=== PATIENT | male | born 1930 | race Caucasian/White ===

== ENCOUNTER 2016-09-21 16:00 | Inpatient (IN) | payer MEDICARE, BC ==
[2016-09-21 18:05] LABS: Add Diff/Slide Review? Slide Review Added; Comments Flag Yes; Hematocrit 42 % (42-52); Hemoglobin 13.4 g/dl (14.0-18.0); Mean Corpuscular HGB Conc 32 g/dl (31-36); Mean Corpuscular Hemoglobin 29 pg (27-31); Mean Corpuscular Volume 91 fL (80-94); Mean Platelet Volume 8 um3 (7.4-10.4); Red Blood Count 4.57 10^6/ul (4.0-5.4); Red Cell Distribution Width 15 % (10.5-15); White Blood Count 24.6 10^3/ul (3.5-10.8)
[2016-09-21 18:33] LABS: ALT 10 U/L (7-52); AST 19 U/L (13-39); Albumin 3.6 g/dL (3.2-5.2); Alkaline Phosphatase 62 U/L (34-104); Amylase 16 U/L (29-103); Anion Gap 10 mmol/L (2-11); BUN/Creatinine Ratio 26.7 (8-20); Blood Urea Nitrogen 39 mg/dL (6-24); C Reactive Protein 171.02 mg/L (< 5.00); CO2 Carbon Dioxide 22 mmol/L (22-32); Calcium 9.5 mg/dL (8.6-10.3); Chloride 103 mmol/L (101-111); Creatine Kinase 178 U/L (10-223); EGFR African American 59.3 (>60); EGFR Non-African American 46.1 (>60); Globulin 3.6 g/dL (2-4); Glucose 138 mg/dL (70-100); Lipase < 10 U/L (11.0-82.0); Magnesium 2.2 mg/dL (1.9-2.7); Potassium 4.6 mmol/L (3.5-5.0); Sodium 135 mmol/L (133-145); Total Protein 7.2 g/dL (6.4-8.9)
[2016-09-21 18:35] LABS: Immature Granulocytes 17 % (0-9)
[2016-09-21 18:36] LABS: Neutrophil % 69 % (38-83); RBC Morphology Normal (Normal)
[2016-09-21] MEDS ORDERED: Acetaminophen TAB* 325 MG PO ONE (18:44)
[2016-09-21 19:09] LABS: Urine Bacteria Absent (Absent); Urine Bilirubin Negative (Negative); Urine Glucose Negative (Negative); Urine Nitrite Negative (Negative)
--- NOTE | 2016-09-21 19:27 | RAD ---
Indication: Shortness of breath, pneumonia. Single frontal view of the chest performed at 1916 hours was reviewed. Comparison is made with previous exam dated June 06, 2014. No mediastinal shift is noted. Heart is of normal size and configuration. Lung loyd appear clear. IMPRESSION: NO ACTIVE CARDIOPULMONARY DISEASE IS NOTED.
[2016-09-21] MEDS: NS 0.9% 1000 ML* 3,000 ML IV ONE ×2 (19:39→22:03)
[2016-09-21] MEDS ORDERED: Iodixanol* (CONTRAST) 320 MG/ML 100 ML SDV IV ONE (20:54)
--- NOTE | 2016-09-21 22:00 | RAD ---
Indication: Abdominal pain, colitis. Contrast: Administered 99.0 ml of VISAPAQUE 320 mgi/ml CT of the abdomen and pelvis was performed after oral and IV contrast administration. Coronal and sagittal reconstructed images were obtained. Lung bases demonstrate no pleural fluid. Bilateral pleural effusion is noted. Heart demonstrates no pericardial effusion. Liver is normal in size. No focal lesions or intrahepatic ductal dilatation is noted. The spleen is normal in size. The pancreas is atrophic. No pancreatic duct dilatation is noted. Common duct is not dilated. Gallbladder demonstrates no calcified gallstones, pericholecystic fluid or wall thickening. No adrenal masses are noted. The kidneys demonstrate symmetric nephrograms. Atherosclerotic aorta is noted. There is submucosal edema in the transverse colon and descending colon. Findings are suspicious for colitis. This extends to the sigmoid colon. The trace amount of free fluid is noted. The appendix is visualized and is normal. There is contrast in the right colon noted. No pelvic adenopathy is noted. The urinary bladder is otherwise unremarkable. There is suggestion of a filling defect in the right common femoral vein. This extends into the right femoral vein. The possibility of a deep venous thrombosis in the right common femoral vein and femoral vein should be considered. The bony structures are grossly unremarkable aside from degenerative disc disease in the lumbar spine. IMPRESSION: SUBMUCOSAL EDEMA IN THE TRANSVERSE COLON, DESCENDING COLON EXTENDING TO THE SIGMOID COLON. FINDINGS ARE CONSISTENT WITH COLITIS. IN ADDITION THERE APPEARS TO BE FILLING DEFECT IN THE RIGHT COMMON FEMORAL VEIN EXTENDING TO THE RIGHT FEMORAL VEIN WHICH IS SUSPICIOUS FOR DEEP VENOUS THROMBOSIS OF THE RIGHT LOWER EXTREMITY.
[2016-09-21] MEDS ORDERED: Acetaminophen TAB* 325 MG PO PRN (22:13)
[2016-09-21] MEDS ORDERED: Albuterol 2.5 MG/3 ML NEB.SOL* (0.083%) INH PRN (22:13)
[2016-09-21] MEDS ORDERED: CMCS: Melatonin (NF) 3 MG TAB PO PRN (22:13)
[2016-09-21] MEDS ORDERED: oxyCODONE TAB* 5 MG TAB PO PRN (22:14)
[2016-09-21] MEDS ORDERED: Ondansetron INJ* 2 MG/ML VIAL IV PRN (22:14)
--- NOTE | 2016-09-21 22:21 | HP ---
H&P (Free Text) History and Physical: PCP: Jessica Mondragon NP Date/Time of Evaluation: 09/21/2016 2200 CC: abdominal pain HPI: Mr Knapp is an 85YO male HX advanced dementia living at home with his developed cramping abdominal pain yesterday continuing into today with the onset of diarrhea which became maroon colored prompting this evaluation. There has been no F/C, sweats, N/V, SOB, chest pain, or other issues. He has chronic swelling of the RLE and has a new oxygen requirement of 5L NC at rest. CT abd/ pel W revealed descending colitis and a filling defect in the proximal R common femoral into the R femoral vein which has been confirmed by US. As he cannot have further dye load to assess for PE, but is not a good candidate for anticoagulation 2nd rectal bleeding, Nita Hussein MD surgery was consulted and will come evaluate him for IVC filter placement tonight. PMedHx TIA/CVA HTN hypothyroidism GERD vitamin B12 deficiency Ambulatory Orders Omeprazole CAP* [Prilosec CAP*] 20 mg PO DAILY 06/06/14 Aspirin Low Dose CHEW TAB* [Aspirin Low Dose TAB*] 81 mg PO DAILY 09/21/16 Docusate Sodium [Stool Softener] 100 mg PO DAILY 09/21/16 Levothyroxine TAB* [Synthroid TAB*] 88 mcg PO DAILY 09/21/16 Lisinopril TAB* [Prinivil TAB*] 5 mg PO DAILY 09/21/16 [place]-3 Fatty Acids (Nf) [Fish Oil (NF)] 1,000 mg PO DAILY 09/21/16 Allergies No Known Allergies Allergy (Verified 04/23/12 10:21) SocHx: former light smoker, occasional alcohol, no recreational drugs; lives with his ; former real estate agent; DNR/I code status FamHx: positive for HTN ROS: as above, otherwise reviewed and all were negative Constitutional: NAD, normally developed, well-nourished elderly white male vitals: Vital Signs Temp 36.9 C 09/21/16 19:25 Pulse 99 09/21/16 23:00 Resp 23 09/21/16 23:00 BP 125/72 09/21/16 23:00 Pulse Ox 94 09/21/16 23:00 Intake & Output 09/20/16 09/21/16 09/21/16 23:59 11:59 23:59 Intake Total 1100 Balance 1100 Weight 79.379 kg Intake: IV Fluids 1100 HEENM: atraumatic; hearing: clinically intact; oropharynx: clear, mucosa tacky Neck: soft tissue: non-tender; thyroid: normal Pulmonary: clear to auscultation bilaterally, good aeration, no accessory muscle use CV: RR/RR, normal S1S2, no carotid bruit, no jugular venous distention, 2+ B DP/ PT, 2+ RLE/1+ LLE edema Abdominal: soft, non-distended, non-tender, no rebound/guarding/rigidity, normoactive bowel sounds, no hepatosplenomegaly or masses, no costovertebral angle tenderness Musculoskeletal: general: grossly intact without obvious malformation or contracture Integumental: normal appearance and texture of exposed skin Psychiatric orientation: AA & disoriented affect: fidgety mood: resistive, but not combative eye contact: poor content: unreliable memory: markedly impaired insight: poor to absent Testing: Lab Results 09/21/16 09/21/16 09/21/16 Range/Units 17:47 17:47 17:47 WBC 24.6 H (3.5-10.8) 10^3/ul RBC 4.57 (4.0-5.4) 10^6/ul Hgb 13.4 L (14.0-18.0) g/dl Hct 42 (42-52) % MCV 91 (80-94) fL MCH 29 (27-31) pg MCHC 32 (31-36) g/dl RDW 15 (10.5-15) % Plt Count 210 (150-450) 10^3/ul MPV 8 (7.4-10.4) um3 Immature Gran % (Auto) 17 H (0-9) % Neut % (Auto) 85.6 H (38-83) % Lymph % (Auto) 6.1 L (25-47) % [place] % (Auto) 7.6 (1-9) % Eos % (Auto) 0.1 (0-6) % Baso % (Auto) 0.6 (0-2) % Absolute Neuts (auto) 21.0 H (1.5-7.7) 10^3/ul Absolute Lymphs (auto) 1.5 (1.0-4.8) 10^3/ul Absolute Monos (auto) 1.9 H (0-0.8) 10^3/ul Absolute Eos (auto) 0 (0-0.6) 10^3/ul Absolute Basos (auto) 0.1 (0-0.2) 10^3/ul Absolute Nucleated RBC 0.01 10^3/ul Neutrophils % 69 (38-83) % Band Neutrophils % 14 H (0-8) % Lymphocytes % 12 L (25-47) % Monocytes % 5 (0-13) % Nucleated RBC % 0 Normal RBC Morphology Normal (Normal) Sodium 135 (133-145) mmol/L Potassium 4.6 (3.5-5.0) mmol/L Chloride 103 (101-111) mmol/L Carbon Dioxide 22 (22-32) mmol/L Anion Gap 10 (2-11) mmol/L BUN 39 H (6-24) mg/dL Creatinine 1.46 H (0.67-1.17) mg/dL Est GFR ( Amer) 59.3 (>60) Est GFR (Non-Af Amer) 46.1 (>60) BUN/Creatinine Ratio 26.7 H (8-20) Glucose 138 H (70-100) mg/dL Lactic Acid 1.3 (0.5-2.0) mmol/L Calcium 9.5 (8.6-10.3) mg/dL Magnesium 2.2 (1.9-2.7) mg/dL Total Bilirubin 0.80 (0.2-1.0) mg/dL AST 19 (13-39) U/L ALT 10 (7-52) U/L Alkaline Phosphatase 62 (34-104) U/L Total Creatine Kinase 178 (10-223) U/L C-Reactive Protein 171.02 H (< 5.00) mg/L B-Natriuretic Peptide ( - 100) pg/mL Total Protein 7.2 (6.4-8.9) g/dL Albumin 3.6 (3.2-5.2) g/dL Globulin 3.6 (2-4) g/dL Albumin/Globulin Ratio 1.0 (1-3) Amylase 16 L (29-103) U/L Lipase < 10 L (11.0-82.0) U/L Urine Color Urine Appearance Urine pH (5-9) Ur Specific David (1.010-1.030) Urine Protein (Negative) Urine Ketones (Negative) Urine Blood (Negative) Urine Nitrate (Negative) Urine Bilirubin (Negative) Urine Urobilinogen (Negative) Ur Leukocyte Esterase (Negative) Urine WBC (Auto) (Absent) Urine RBC (Auto) (Absent) Urine Bacteria (Absent) Cellular Casts (Absent) Urine Glucose (Negative) Blood Type Antibody Screen 09/21/16 09/21/16 09/21/16 Range/Units 17:47 17:47 18:49 WBC (3.5-10.8) 10^3/ul RBC (4.0-5.4) 10^6/ul Hgb (14.0-18.0) g/dl Hct (42-52) % MCV (80-94) fL MCH (27-31) pg MCHC (31-36) g/dl RDW (10.5-15) % Plt Count (150-450) 10^3/ul MPV (7.4-10.4) um3 Immature Gran % (Auto) (0-9) % Neut % (Auto) (38-83) % Lymph % (Auto) (25-47) % [place] % (Auto) (1-9) % Eos % (Auto) (0-6) % Baso % (Auto) (0-2) % Absolute Neuts (auto) (1.5-7.7) 10^3/ul Absolute Lymphs (auto) (1.0-4.8) 10^3/ul Absolute Monos (auto) (0-0.8) 10^3/ul Absolute Eos (auto) (0-0.6) 10^3/ul Absolute Basos (auto) (0-0.2) 10^3/ul Absolute Nucleated RBC 10^3/ul Neutrophils % (38-83) % Band Neutrophils % (0-8) % Lymphocytes % (25-47) % Monocytes % (0-13) % Nucleated RBC % Normal RBC Morphology (Normal) Sodium (133-145) mmol/L Potassium (3.5-5.0) mmol/L Chloride (101-111) mmol/L Carbon Dioxide (22-32) mmol/L Anion Gap (2-11) mmol/L BUN (6-24) mg/dL Creatinine (0.67-1.17) mg/dL Est GFR ( Amer) (>60) Est GFR (Non-Af Amer) (>60) BUN/Creatinine Ratio (8-20) Glucose (70-100) mg/dL Lactic Acid (0.5-2.0) mmol/L Calcium (8.6-10.3) mg/dL Magnesium (1.9-2.7) mg/dL Total Bilirubin (0.2-1.0) mg/dL AST (13-39) U/L ALT (7-52) U/L Alkaline Phosphatase (34-104) U/L Total Creatine Kinase (10-223) U/L C-Reactive Protein (< 5.00) mg/L B-Natriuretic Peptide 316 H ( - 100) pg/mL Total Protein (6.4-8.9) g/dL Albumin (3.2-5.2) g/dL Globulin (2-4) g/dL Albumin/Globulin Ratio (1-3) Amylase (29-103) U/L Lipase (11.0-82.0) U/L Urine Color Yellow Urine Appearance Clear Urine pH 5.0 (5-9) Ur Specific David 1.023 (1.010-1.030) Urine Protein 1+(30 mg/dl) H (Negative) Urine Ketones Negative (Negative) Urine Blood 1+ H (Negative) Urine Nitrate Negative (Negative) Urine Bilirubin Negative (Negative) Urine Urobilinogen Negative (Negative) Ur Leukocyte Esterase Negative (Negative) Urine WBC (Auto) Trace(0-5/hpf) (Absent) Urine RBC (Auto) Trace(0-2/hpf) (Absent) Urine Bacteria Absent (Absent) Cellular Casts Present H (Absent) Urine Glucose Negative (Negative) Blood Type A Positive Antibody Screen Negative 09/21/16 Range/Units 19:27 WBC (3.5-10.8) 10^3/ul RBC (4.0-5.4) 10^6/ul Hgb (14.0-18.0) g/dl Hct (42-52) % MCV (80-94) fL MCH (27-31) pg MCHC (31-36) g/dl RDW (10.5-15) % Plt Count (150-450) 10^3/ul MPV (7.4-10.4) um3 Immature Gran % (Auto) (0-9) % Neut % (Auto) (38-83) % Lymph % (Auto) (25-47) % [place] % (Auto) (1-9) % Eos % (Auto) (0-6) % Baso % (Auto) (0-2) % Absolute Neuts (auto) (1.5-7.7) 10^3/ul Absolute Lymphs (auto) (1.0-4.8) 10^3/ul Absolute Monos (auto) (0-0.8) 10^3/ul Absolute Eos (auto) (0-0.6) 10^3/ul Absolute Basos (auto) (0-0.2) 10^3/ul Absolute Nucleated RBC 10^3/ul Neutrophils % (38-83) % Band Neutrophils % (0-8) % Lymphocytes % (25-47) % Monocytes % (0-13) % Nucleated RBC % Normal RBC Morphology (Normal) Sodium (133-145) mmol/L Potassium (3.5-5.0) mmol/L Chloride (101-111) mmol/L Carbon Dioxide (22-32) mmol/L Anion Gap (2-11) mmol/L BUN (6-24) mg/dL Creatinine (0.67-1.17) mg/dL Est GFR ( Amer) (>60) Est GFR (Non-Af Amer) (>60) BUN/Creatinine Ratio (8-20) Glucose (70-100) mg/dL Lactic Acid 1.4 (0.5-2.0) mmol/L Calcium (8.6-10.3) mg/dL Magnesium (1.9-2.7) mg/dL Total Bilirubin (0.2-1.0) mg/dL AST (13-39) U/L ALT (7-52) U/L Alkaline Phosphatase (34-104) U/L Total Creatine Kinase (10-223) U/L C-Reactive Protein (< 5.00) mg/L B-Natriuretic Peptide ( - 100) pg/mL Total Protein (6.4-8.9) g/dL Albumin (3.2-5.2) g/dL Globulin (2-4) g/dL Albumin/Globulin Ratio (1-3) Amylase (29-103) U/L Lipase (11.0-82.0) U/L Urine Color Urine Appearance Urine pH (5-9) Ur Specific [place] (1.010-1.030) Urine Protein (Negative) Urine Ketones (Negative) Urine Blood (Negative) Urine Nitrate (Negative) Urine Bilirubin (Negative) Urine Urobilinogen (Negative) Ur Leukocyte Esterase (Negative) Urine WBC (Auto) (Absent) Urine RBC (Auto) (Absent) Urine Bacteria (Absent) Cellular Casts (Absent) Urine Glucose (Negative) Blood Type Antibody Screen ECG, personally reviewed: NSR rate 93, no ischemia CXR, personally reviewed: IMPRESSION: NO ACTIVE CARDIOPULMONARY DISEASE IS NOTED. CT abd/pel W, personally reviewed: IMPRESSION: SUBMUCOSAL EDEMA IN THE TRANSVERSE COLON, DESCENDING COLON EXTENDING TO THE SIGMOID COLON. FINDINGS ARE CONSISTENT WITH COLITIS. IN ADDITION THERE APPEARS TO BE FILLING DEFECT IN THE RIGHT COMMON FEMORAL VEIN EXTENDING TO THE RIGHT FEMORAL VEIN WHICH IS SUSPICIOUS FOR DEEP VENOUS THROMBOSIS OF THE RIGHT LOWER EXTREMITY. US RLE: ordered, pending Impression: 85M presenting with descending colitis, infectious vs ischemic and proximal R common femoral DVT associated with new oxygen requirement giving significant concern for acute PE DIAGNOSIS & PLAN Primary colitis w/ lower GI bleeding : IV piperacillin/tazobactam : IVFs : blood & stool CXs : pain control : consider GI consult in AM pending overnight course : supportive care RAFA : IVFs : trend renal FX DVT w/ suspected acute DVT : ICU monitoring : supplemental oxygen : not a good candidate for anti-coagulation due to rectal bleeding : Nita Hussein MD surgery consulted, will come evaluate for possible IVC filter placement as he is Secondary TIA : hold aspirin in setting of GI bleeding HTN : review meds once reconciled hypothyroidism : review meds once reconciled GERD : PO omeprazole vitamin B12 deficiency : review meds once reconciled Admission Rational: inpatient for colitis requiring IV ABX & IVFs not anticipated to improve adequately w/i 48H to allow for discharge DVTp: heparin SQ & SCDs Code Status: full HCP:
--- NOTE | 2016-09-21 22:54 | ED ---
Beck Urbina Thomas, scribed for Eladio Bourne MD on 09/21/16 at 1915 . Abdominal Pain/Male - HPI Summary HPI Summary: Pt is an 85 y/o with advanced dementia presenting to the the ED with bloody diarrhea and abdominal pain. Per his son, the pt had bloody diarrhea yestereday and dark blood in his diaper at 1500 today. Currently, pain is resolved, ranked 0/10. Additionally c/o occasional urinary incontinence. Denies vomiting, SOB. Since yesterday he has not eaten and has only had a few sips of Gatorade to drink. PMHx: advanced dementia, HTN, TIA. Denies a hx of DM, diverticulitis, and CHF. Is not on a blood thinner. Takes medication for his thyroid. FHx of Alzheimer's disease. Level 5 caveat due to dementia. - History of Current Complaint Chief Complaint: EDAbdPain Stated Complaint: ABD PAIN/DIARRHEA/BLOOD IN STOOL Time Seen by Provider: 09/21/16 18:39 Hx Obtained From: Patient, Family/Credit Resolution Representative Hx From Patient Unobtainable Due To: Dementia Onset/Duration: Lasting Hours - onset yesterday afternoon Severity Currently: None Pain Intensity: 0 Pain Scale Used: 0-10 Numeric Associated Signs And Symptoms: Positive: Other - POS: occasoinal urinary incontinence; NEG: SOB. Negative: Vomiting - Allergies/Home Medications Allergies/Adverse Reactions: Allergies Allergy/AdvReac Type Severity Reaction Status Date / Time No Known Allergies Allergy Verified 04/23/12 10:21 Home Medications: Home Medications Aspirin Low Dose CHEW TAB* [Aspirin Low Dose TAB*] 81 mg PO DAILY 09/21/16 [ History Confirmed 09/21/16] Docusate Sodium [Stool Softener] 100 mg PO DAILY 09/21/16 [History Confirmed ] Levothyroxine TAB* [Synthroid TAB*] 88 mcg PO DAILY 09/21/16 [History Confirmed 09/21/16] Lisinopril TAB* [Prinivil TAB*] 5 mg PO DAILY 09/21/16 [History Confirmed ] [place]-3 Fatty Acids (Nf) [Fish Oil (NF)] 1,000 mg PO DAILY 09/21/16 [History Confirmed 09/21/16] PMH/Surg Hx/FS Hx/Imm Hx Previously Healthy: No Endocrine/Hematology History: Reports: Hx Thyroid Disease Cardiovascular History: Reports: Hx Hypertension Denies: Hx Pacemaker/ICD GI History: Reports: Hx Hiatal Hernia Sensory History: Reports: Hx Contacts or Glasses - reading only Denies: Hx Hearing Aid - hard of hearing,asks to repeat Opthamlomology History: Reports: Hx Contacts or Glasses - reading only Neurological History: Reports: Hx Dementia Psychiatric History: Denies: Hx Panic Disorder - Surgical History Surgery Procedure, Year, and Place: broken bones,nothing that comes to mind. Infectious Disease History: No Infectious Disease History: Reports: Hx Shingles Denies: Traveled Outside the [place] in Last 30 Days - Family History Known Family History: Positive: Other - POS: Alzheimer's disease - Social History Alcohol Use: Weekly Substance Use Type: Reports: None Smoking Status (MU): Former Smoker Review of Systems - ROS Summary Review of Systems Summary: Level 5 caveat due to dementia. ROS limited because patient will not follow commands. Negative: Shortness Of Breath Gastrointestinal: Other - POS: bloody diarrhea, dark blood in diaper Positive: Abdominal Pain. Negative: Vomiting Genitourinary: Other - POS: occasional urinary incontinence All Other Systems Reviewed And Are Negative: No Physical Exam - Summary Physical Exam Summary: History is obtained from son. Level 5 caveat to due to dementia. The patient is mildly ill. The skin is warm and dry. Patient is pale-looking. Decreased skin turgor. HEENT: The head is normocephalic and atraumatic. The pupils are equal and reactive. The conjunctivae are clear and without drainage. Nares are patent and without drainage. Mouth reveals dry mucous membranes and the throat is without erythema and exudate. The external ears are intact. The ear canals are patent and without drainage. The tympanic membranes are intact. Neck is supple with full range of motion and non-tender. There are no carotid bruits. There is no neck vein distension. Respiratory: Chest is non-tender. Lungs are clear to auscultation and breath sounds are symmetrical and equal. Cardiovascular: Hear is regular rate and rhythm. There is no murmur or rub auscultated. Pitting pedal edema. Pulses are symmetrical and equal. Pulses are 2+. Capillary refill Abdomen: Tender abdomen. Hyperactive bowel sounds. Belly is distended. Gaurav blood in rectal exam. Guarding is present. Tenderness to LUQ, LLQ, and L middle quadrant. Musculoskeletal: There is no back pain noted. Extremities are non-tender with full range of motion. There is good capillary refill. There is no peripheral edema or calf tenderness elicited. Neurological: Unable to perform neurological exam because patient will not follow commands. Probably demented. Psychiatric: The patient has an appropriate affect and does not exhibit any anxiety or depression. Triage Information Reviewed: Yes Vital Signs On Initial Exam: Initial Vitals Temp Pulse Resp BP Pulse Ox 98.3 F 81 20 109/46 99 09/21/16 16:04 09/21/16 16:04 09/21/16 16:04 09/21/16 16:04 09/21/16 16:04 Vital Signs Reviewed: Yes Diagnostics - Vital Signs Vital Signs Temp Pulse Resp BP Pulse Ox 09/21/16 17:53 100.2 F 82 22 141/108 87 09/21/16 16:04 98.3 F 81 20 109/46 99 - Laboratory Lab Results: Lab Results 09/21/16 09/21/16 09/21/16 Range/Units 17:47 17:47 17:47 WBC 24.6 H (3.5-10.8) 10^3/ul RBC 4.57 (4.0-5.4) 10^6/ul Hgb 13.4 L (14.0-18.0) g/dl Hct 42 (42-52) % MCV 91 (80-94) fL MCH 29 (27-31) pg MCHC 32 (31-36) g/dl RDW 15 (10.5-15) % Plt Count 210 (150-450) 10^3/ul MPV 8 (7.4-10.4) um3 Immature Gran % (Auto) 17 H (0-9) % Neut % (Auto) 85.6 H (38-83) % Lymph % (Auto) 6.1 L (25-47) % [place] % (Auto) 7.6 (1-9) % Eos % (Auto) 0.1 (0-6) % Baso % (Auto) 0.6 (0-2) % Absolute Neuts (auto) 21.0 H (1.5-7.7) 10^3/ul Absolute Lymphs (auto) 1.5 (1.0-4.8) 10^3/ul Absolute Monos (auto) 1.9 H (0-0.8) 10^3/ul Absolute Eos (auto) 0 (0-0.6) 10^3/ul Absolute Basos (auto) 0.1 (0-0.2) 10^3/ul Absolute Nucleated RBC 0.01 10^3/ul Neutrophils % 69 (38-83) % Band Neutrophils % 14 H (0-8) % Lymphocytes % 12 L (25-47) % Monocytes % 5 (0-13) % Nucleated RBC % 0 Normal RBC Morphology Normal (Normal) Sodium 135 (133-145) mmol/L Potassium 4.6 (3.5-5.0) mmol/L Chloride 103 (101-111) mmol/L Carbon Dioxide 22 (22-32) mmol/L Anion Gap 10 (2-11) mmol/L BUN 39 H (6-24) mg/dL Creatinine 1.46 H (0.67-1.17) mg/dL Est GFR ( Amer) 59.3 (>60) Est GFR (Non-Af Amer) 46.1 (>60) BUN/Creatinine Ratio 26.7 H (8-20) Glucose 138 H (70-100) mg/dL Lactic Acid 1.3 (0.5-2.0) mmol/L Calcium 9.5 (8.6-10.3) mg/dL Magnesium 2.2 (1.9-2.7) mg/dL Total Bilirubin 0.80 (0.2-1.0) mg/dL AST 19 (13-39) U/L ALT 10 (7-52) U/L Alkaline Phosphatase 62 (34-104) U/L Total Creatine Kinase 178 (10-223) U/L C-Reactive Protein 171.02 H (< 5.00) mg/L B-Natriuretic Peptide ( - 100) pg/mL Total Protein 7.2 (6.4-8.9) g/dL Albumin 3.6 (3.2-5.2) g/dL Globulin 3.6 (2-4) g/dL Albumin/Globulin Ratio 1.0 (1-3) Amylase 16 L (29-103) U/L Lipase < 10 L (11.0-82.0) U/L Blood Type Antibody Screen 09/21/16 09/21/16 Range/Units 17:47 17:47 WBC (3.5-10.8) 10^3/ul RBC (4.0-5.4) 10^6/ul Hgb (14.0-18.0) g/dl Hct (42-52) % MCV (80-94) fL MCH (27-31) pg MCHC (31-36) g/dl RDW (10.5-15) % Plt Count (150-450) 10^3/ul MPV (7.4-10.4) um3 Immature Gran % (Auto) (0-9) % Neut % (Auto) (38-83) % Lymph % (Auto) (25-47) % [place] % (Auto) (1-9) % Eos % (Auto) (0-6) % Baso % (Auto) (0-2) % Absolute Neuts (auto) (1.5-7.7) 10^3/ul Absolute Lymphs (auto) (1.0-4.8) 10^3/ul Absolute Monos (auto) (0-0.8) 10^3/ul Absolute Eos (auto) (0-0.6) 10^3/ul Absolute Basos (auto) (0-0.2) 10^3/ul Absolute Nucleated RBC 10^3/ul Neutrophils % (38-83) % Band Neutrophils % (0-8) % Lymphocytes % (25-47) % Monocytes % (0-13) % Nucleated RBC % Normal RBC Morphology (Normal) Sodium (133-145) mmol/L Potassium (3.5-5.0) mmol/L Chloride (101-111) mmol/L Carbon Dioxide (22-32) mmol/L Anion Gap (2-11) mmol/L BUN (6-24) mg/dL Creatinine (0.67-1.17) mg/dL Est GFR ( Amer) (>60) Est GFR (Non-Af Amer) (>60) BUN/Creatinine Ratio (8-20) Glucose (70-100) mg/dL Lactic Acid (0.5-2.0) mmol/L Calcium (8.6-10.3) mg/dL Magnesium (1.9-2.7) mg/dL Total Bilirubin (0.2-1.0) mg/dL AST (13-39) U/L ALT (7-52) U/L Alkaline Phosphatase (34-104) U/L Total Creatine Kinase (10-223) U/L C-Reactive Protein (< 5.00) mg/L B-Natriuretic Peptide 316 H ( - 100) pg/mL Total Protein (6.4-8.9) g/dL Albumin (3.2-5.2) g/dL Globulin (2-4) g/dL Albumin/Globulin Ratio (1-3) Amylase (29-103) U/L Lipase (11.0-82.0) U/L Blood Type A Positive Antibody Screen Negative Result Diagrams: 09/21/16 17:47 09/21/16 17:47 Lab Statement: Any lab studies that have been ordered have been reviewed, and results considered in the medical decision making process. - Radiology CXR Xray Interpretation: No Acute Changes - NO ACTIVE CARDIOPULMONARY DISEASE NOTED. Radiology Interpretation Completed By: Radiologist - CT Abd/Pel CT CT Interpretation: Positive (See Comments) - SUBMUCOSAL EDEMA IN THE TRANSVERSE COLON, DESCENDING COLON EXTENDING TO THE SIGMOID COLON. FINDINGS ARE CONSISTENT WITH COLITIS. IN ADDITION THERE APPEARS TO BE FILLING DEFECT IN THE RIGHT COMMON FEMORAL VEIN EXTENDING TO THE RIGHT FEMORAL VEIN WHICH IS SUSPICIOUS FOR DEEP VENOUS THROMBOSIS OF THE RIGHT LOWER EXTREMITY. CT Interpretation Completed By: Radiologist - EKG 1943 Cardiac Rate: NL - 92 bpm EKG Rhythm: Sinus Rhythm ST Segment: Non-Specific - Non-specific ST changes EKG Interpretation: Old inferior wall MN, poor R wave progression Abdominal Pain Fem Course/Dx - Course Assessment/Plan: Pt is an 85 y/o with advanced dementia presenting to the the ED with bloody diarrhea and abdominal pain. Per his son, the pt had bloody diarrhea yestereday and dark blood in his diaper at 1500 today. Currently, pain is resolved, ranked 0/10. Additionally c/o occasional urinary incontinence. Denies vomiting, SOB. Since yesterday he has not eaten and has only had a few sips of Gatorade to drink. PMHx: advanced dementia, HTN, TIA. Denies a hx of DM , diverticulitis, and CHF. Is not on a blood thinner. Takes medication for his thyroid. FHx of Alzheimer's disease. Level 5 caveat due to dementia. Abd/Pel CT reveals: "SUBMUCOSAL EDEMA IN THE TRANSVERSE COLON, DESCENDING COLON EXTENDING TO THE SIGMOID COLON. FINDINGS ARE CONSISTENT WITH COLITIS. IN ADDITION THERE APPEARS TO BE FILLING DEFECT IN THE RIGHT COMMON FEMORAL VEIN EXTENDING TO THE RIGHT FEMORAL VEIN WHICH IS SUSPICIOUS FOR DEEP VENOUS THROMBOSIS OF THE RIGHT LOWER EXTREMITY." CXR reveals no acute findings. EKG reveals no acute findings. Discussed care of patient with Dr. Tolbert who accepts pt for admission. He will be admitted with Dx of colitis and DVT of the right common femoral vein. - Diagnoses Differential Diagnosis/HQI/PQRI: Bowel Obstruction, Diverticulitis, Ischemic Bowel, Pancreatitis, Other Provider Diagnoses: Colitis, right common femoral vein DVT, Acute GI hemorrhage - Provider Notifications Discussed Care Of Patient With: Demar Tolbert Time Discussed With Above Provider: 21:30 Instructed by Provider To: Other - Wants to see the results of the CT before making a decision concerning the patient. Discussed care of patient with Dr. Tolbert at 2223 who accepts pt for admission. - Critical Care Time Critical Care Time: 30-74 min - 30 minutes Discharge - Discharge Plan Condition: Stable Disposition: ADMITTED TO [facility] documentation as recorded by the Beck perez Thomas accurately reflects the service I personally performed and the decisions made by , Eladio Bourne MD.
[2016-09-22] MEDS ORDERED: Lidocaine 1% INJ* 10 MG/ML 30 ML SDV ONE (00:08)
[2016-09-22] MEDS ORDERED: Heparin 2 UNITS/ML IVPREMIX* 1,000 ML IV ONE (00:08)
[2016-09-22] MEDS ORDERED: ceFAZolin 2 GM PREMIX(*) 2 GM/50 ML BAG IVPB ONE (00:32)
[2016-09-22] MEDS ORDERED: Remifentanil* 2 MG VIAL ONE (00:53)
[2016-09-22] MEDS ORDERED: Lidocaine 2% PF * 5 ML VIAL ONE (01:03)
[2016-09-22] MEDS ORDERED: Propofol* 10 MG/ML 20 ML BTL IV PUSH ONE (01:03)
[2016-09-22] MEDS: NS 0.9% 1000 ML* 1,000 ML IV SCH ×3 (03:02→16:01)
--- NOTE | 2016-09-22 04:13 | PN ---
Progress Note - Progress Note Date of Service: 09/22/16 Note: After case discussed with Nita Hussein MD surgery, it was best felt to take Mr Knapp to the OR for IVC filter placement tonight to avoid the risks of anticoagulation for his DVT/suspected PE given his rectal bleeding. The procedure was reported as going very well and alleviates the immediate risk of further embolization. As such, he will be monitored on 4 S telemetry rather than ICU.
[2016-09-22] MEDS ORDERED: Omeprazole CAP* 20 MG PO SCH ×2 (06:00→09:00)
[2016-09-22] MEDS ORDERED: Heparin VIAL(*) 5000 UNITS/ML VIAL (FIVE THOUSAND) SUBCUT SCH (06:00)
[2016-09-22] MEDS ORDERED: Levothyroxine TAB* 88 MCG TAB PO SCH (06:00)
--- NOTE | 2016-09-22 07:26 | RAD ---
HISTORY: Lower extremity pain and swelling TECHNIQUE: Multiple transverse and longitudinal ultrasound images were obtained of the veins of the right lower extremity using grayscale, color Doppler, and spectral Doppler imaging with and without compression and with augmentation. FINDINGS: Examination is limited by patient's inability to remain still and cooperate with the examination. VEINS: Beginning at the right common femoral vein and extending to the proximal femoral vein, there is echogenic intraluminal filling defect preventing compression of the vein with a small amount of color flow around the margins. From the mid femoral vein to the popliteal vein there is normal compressibility, augmentation and color flow signal. The visualized portions of the femoral profundus vein and proximal great saphenous vein exhibit normal compressibility, augmentation and phasicity. Reliable visualization of the calf veins is prevented by subcutaneous edema overlying the calf. SOFT TISSUES: Grossly normal. No large popliteal fossa cyst was identified. IMPRESSION: Sonographic findings are compatible with partially occlusive DVT from the right common femoral vein to the proximal portion of the femoral vein.
--- NOTE | 2016-09-22 07:42 | RAD ---
INDICATION: IVC filter insertion. TECHNIQUE: 16.3 seconds of intermitted fluoroscopic guidance was provided. 3 spot films and a cine loop were obtained. FINDINGS: The films demonstrate placement of an inferior vena caval filter at the L2-L3 level. IMPRESSION: INTRAOPERATIVE CONTROL FILMS. CPT II Codes: 6045F
[2016-09-22] MEDS ORDERED: Lisinopril TAB* 5 MG PO SCH (09:00)
[2016-09-22 09:02] LABS: Hematocrit 36 % (42-52); Hemoglobin 11.6 g/dl (14.0-18.0); Mean Corpuscular HGB Conc 32 g/dl (31-36); Mean Corpuscular Hemoglobin 29 pg (27-31); Mean Corpuscular Volume 91 fL (80-94); Mean Platelet Volume 8 um3 (7.4-10.4); Red Blood Count 3.96 10^6/ul (4.0-5.4); Red Cell Distribution Width 15 % (10.5-15)
[2016-09-22 09:18] LABS: Calcium 8.4 mg/dL (8.6-10.3); EGFR African American 72.3 (>60); EGFR Non-African American 56.2 (>60); Potassium 4.1 mmol/L (3.5-5.0)
[2016-09-22] MEDS: Pantoprazole IV* 40 MG IV SCH (10:31)
[2016-09-22] MEDS: Levothyroxine INJ* 100 MCG/5 ML VIAL IV SCH (10:31)
--- NOTE | 2016-09-22 15:47 | PN ---
Subjective Date of Service: 09/22/16 Interval History: Patient not able to make his needs known. Objective Active Medications: Acetaminophen (Tylenol Tab*) 650 mg PO Q6H PRN PRN Reason: FEVER/PAIN Acetaminophen (Tylenol Supp*) 650 mg UT Q4H PRN PRN Reason: TEMP EQUAL OR GREATER 101 F Albuterol (Ventolin 2.5 Mg/3 Ml Neb.Anamaria*) 2.5 mg INH Q2H PRN PRN Reason: SOB/WHEEZING Sodium Chloride (Ns 0.9% 1000 Ml*) 1,000 mls @ 100 mls/hr IV PER [facility] Last Admin: 09/22/16 13:45 Dose: 100 mls/hr Levothyroxine Sodium (Synthroid Inj*) 50 mcg IV 0600 [facility] Last Admin: 09/22/16 10:31 Dose: 50 mcg Morphine Sulfate (Morphine Oral Concentrate*) 5 mg SL Q30M PRN PRN Reason: PAIN Ondansetron HCl (Zofran Inj*) 4 mg IV Q6H PRN PRN Reason: NAUSEA Pantoprazole Sodium (Protonix Iv*) 40 mg IV Q24H [facility] Last Admin: 09/22/16 10:31 Dose: 40 mg Vital Signs 09/21/16 09/21/16 09/22/16 23:00 23:30 00:00 Temperature Pulse Rate 99 87 86 Respiratory 23 23 21 Rate Blood Pressure 125/72 101/76 (mmHg) O2 Sat by Pulse 94 95 94 Oximetry 09/22/16 09/22/16 09/22/16 00:01 00:06 00:24 Temperature 98.6 F Pulse Rate 84 91 Respiratory 21 22 Rate Blood Pressure 113/60 (mmHg) O2 Sat by Pulse 96 94 Oximetry 09/22/16 09/22/16 09/22/16 01:27 01:35 01:40 Temperature 98.4 F Pulse Rate 82 81 85 Respiratory 18 18 18 Rate Blood Pressure 107/88 121/64 110/68 (mmHg) O2 Sat by Pulse 99 98 99 Oximetry 09/22/16 09/22/16 09/22/16 01:45 02:00 02:10 Temperature 98.6 F Pulse Rate 85 88 88 Respiratory 20 20 19 Rate Blood Pressure 114/58 126/69 96/60 (mmHg) O2 Sat by Pulse 99 98 97 Oximetry 09/22/16 09/22/1609/22/17 02:33 02:34 03:00 Temperature Pulse Rate Respiratory 18 16 Rate Blood Pressure 116/52 106/59 (mmHg) O2 Sat by Pulse Oximetry 09/22/16 09/22/16 09/22/16 04:00 04:01 05:00 Temperature 97.9 F Pulse Rate 96 95 Respiratory 25 25 Rate Blood Pressure 108/67 130/57 (mmHg) O2 Sat by Pulse 90 97 Oximetry 09/22/16 09/22/16 09/22/16 06:00 07:00 07:41 Temperature 100.1 F Pulse Rate 94 Respiratory 24 18 Rate Blood Pressure 117/54 104/57 (mmHg) O2 Sat by Pulse 91 Oximetry 09/22/16 09/22/16 09/22/16 08:00 09:00 10:00 Temperature Pulse Rate 83 84 Respiratory 20 25 Rate Blood Pressure 110/56 87/64 (mmHg) O2 Sat by Pulse 98 97 Oximetry 09/22/16 09/22/16 09/22/16 10:30 11:00 12:17 Temperature 98.4 F 98.2 F Pulse Rate 77 80 Respiratory 24 24 Rate Blood Pressure 133/51 (mmHg) O2 Sat by Pulse 98 91 Oximetry Oxygen Devices in Use Now: Simple Face Mask Appearance: Head partly up in bed. Sleeping but easily aroused. Flat affect. Looks comfortable. Eyes: No Scleral Icterus Neck: NL Appearance and Movements; NL JVP, No Thyroid Enlargement, Masses Respiratory: Symmetrical Chest Expansion and Respiratory Effort, Clear to Auscultation, Clear to Percussion Cardiovascular: NL Sounds; No Murmurs; No JVD, RRR, No Edema, - Abdominal: NL Sounds; No Tenderness; No Distention, No Hepatosplenomegaly, - Extremities: No Edema, No Clubbing, Cyanosis, - Skin: No Rash or Ulcers, No Nodules or Sclerosis, - Neurological: NL Sensation - Able to states his full name. Gave his age as 32. He could not identify his son at the bedside. No tremor. Nearly non-verbal, poor attentionn span, poor eye contact. Result Diagrams: 09/22/16 08:47 09/22/16 08:47 Additional Lab and Data: Lab Results 09/21/16 09/21/16 09/21/16 Range/Units 17:47 17:47 17:47 WBC 24.6 H (3.5-10.8) 10^3/ul RBC 4.57 (4.0-5.4) 10^6/ul Hgb 13.4 L (14.0-18.0) g/dl Hct 42 (42-52) % MCV 91 (80-94) fL MCH 29 (27-31) pg MCHC 32 (31-36) g/dl RDW 15 (10.5-15) % Plt Count 210 (150-450) 10^3/ul MPV 8 (7.4-10.4) um3 Immature Gran % (Auto) 17 H (0-9) % Neut % (Auto) 85.6 H (38-83) % Lymph % (Auto) 6.1 L (25-47) % [place] % (Auto) 7.6 (1-9) % Eos % (Auto) 0.1 (0-6) % Baso % (Auto) 0.6 (0-2) % Absolute Neuts (auto) 21.0 H (1.5-7.7) 10^3/ul Absolute Lymphs (auto) 1.5 (1.0-4.8) 10^3/ul Absolute Monos (auto) 1.9 H (0-0.8) 10^3/ul Absolute Eos (auto) 0 (0-0.6) 10^3/ul Absolute Basos (auto) 0.1 (0-0.2) 10^3/ul Absolute Nucleated RBC 0.01 10^3/ul Neutrophils % 69 (38-83) % Band Neutrophils % 14 H (0-8) % Lymphocytes % 12 L (25-47) % Monocytes % 5 (0-13) % Nucleated RBC % 0 Normal RBC Morphology Normal (Normal) Sodium 135 (133-145) mmol/L Potassium 4.6 (3.5-5.0) mmol/L Chloride 103 (101-111) mmol/L Carbon Dioxide 22 (22-32) mmol/L Anion Gap 10 (2-11) mmol/L BUN 39 H (6-24) mg/dL Creatinine 1.46 H (0.67-1.17) mg/dL Est GFR ( Amer) 59.3 (>60) Est GFR (Non-Af Amer) 46.1 (>60) BUN/Creatinine Ratio 26.7 H (8-20) Glucose 138 H (70-100) mg/dL Lactic Acid 1.3 (0.5-2.0) mmol/L Calcium 9.5 (8.6-10.3) mg/dL Magnesium 2.2 (1.9-2.7) mg/dL Total Bilirubin 0.80 (0.2-1.0) mg/dL AST 19 (13-39) U/L ALT 10 (7-52) U/L Alkaline Phosphatase 62 (34-104) U/L Total Creatine Kinase 178 (10-223) U/L C-Reactive Protein 171.02 H (< 5.00) mg/L B-Natriuretic Peptide ( - 100) pg/mL Total Protein 7.2 (6.4-8.9) g/dL Albumin 3.6 (3.2-5.2) g/dL Globulin 3.6 (2-4) g/dL Albumin/Globulin Ratio 1.0 (1-3) Amylase 16 L (29-103) U/L Lipase < 10 L (11.0-82.0) U/L Blood Type Antibody Screen 09/21/16 09/21/16 Range/Units 17:47 17:47 WBC (3.5-10.8) 10^3/ul RBC (4.0-5.4) 10^6/ul Hgb (14.0-18.0) g/dl Hct (42-52) % MCV (80-94) fL MCH (27-31) pg MCHC (31-36) g/dl RDW (10.5-15) % Plt Count (150-450) 10^3/ul MPV (7.4-10.4) um3 Immature Gran % (Auto) (0-9) % Neut % (Auto) (38-83) % Lymph % (Auto) (25-47) % [place] % (Auto) (1-9) % Eos % (Auto) (0-6) % Baso % (Auto) (0-2) % Absolute Neuts (auto) (1.5-7.7) 10^3/ul Absolute Lymphs (auto) (1.0-4.8) 10^3/ul Absolute Monos (auto) (0-0.8) 10^3/ul Absolute Eos (auto) (0-0.6) 10^3/ul Absolute Basos (auto) (0-0.2) 10^3/ul Absolute Nucleated RBC 10^3/ul Neutrophils % (38-83) % Band Neutrophils % (0-8) % Lymphocytes % (25-47) % Monocytes % (0-13) % Nucleated RBC % Normal RBC Morphology (Normal) Sodium (133-145) mmol/L Potassium (3.5-5.0) mmol/L Chloride (101-111) mmol/L Carbon Dioxide (22-32) mmol/L Anion Gap (2-11) mmol/L BUN (6-24) mg/dL Creatinine (0.67-1.17) mg/dL Est GFR ( Amer) (>60) Est GFR (Non-Af Amer) (>60) BUN/Creatinine Ratio (8-20) Glucose (70-100) mg/dL Lactic Acid (0.5-2.0) mmol/L Calcium (8.6-10.3) mg/dL Magnesium (1.9-2.7) mg/dL Total Bilirubin (0.2-1.0) mg/dL AST (13-39) U/L ALT (7-52) U/L Alkaline Phosphatase (34-104) U/L Total Creatine Kinase (10-223) U/L C-Reactive Protein (< 5.00) mg/L B-Natriuretic Peptide 316 H ( - 100) pg/mL Total Protein (6.4-8.9) g/dL Albumin (3.2-5.2) g/dL Globulin (2-4) g/dL Albumin/Globulin Ratio (1-3) Amylase (29-103) U/L Lipase (11.0-82.0) U/L Blood Type A Positive Antibody Screen Negative Assess/Plan/Problems-Billing Assessment: - Patient Problems (1) Dementia Current Visit: Yes Status: Acute Code(s): F03.90 - UNSPECIFIED DEMENTIA WITHOUT BEHAVIORAL DISTURBANCE SNOMED Code(s): 66725239 Comment: I spoke at length with the son about his dx, prognosis and management. The patient has had dementia for about 8 yrs, declining more rapidly in the last 3 years, now the family can't care for hm at home. He agreed with comfort care measures. As the patient could not swallow pudding thick liquids without aspiration his prognosis is perhaps 7-12 days. I have asked for a Hospice consult (2) Colitis Current Visit: Yes Status: Acute Code(s): K52.9 - NONINFECTIVE GASTROENTERITIS AND COLITIS, UNSPECIFIED SNOMED Code(s): 66953469 Comment: Bleeding and diarrhea seem to have stopped. Not clear if antibiotics are helpful. As he is comfort care with prognosis as above, will stop the pip/eliza. (3) DVT (deep venous thrombosis) Current Visit: Yes Status: Acute Code(s): I82.409 - ACUTE EMBOLISM AND THOMBOS UNSP DEEP VN UNSP LOWER EXTREMITY SNOMED Code(s): 291155172 Comment: S/P IVC filter 09/21. Due to his short prognosis will not consider anticoagulation.
[2016-09-22 15:48] LABS: TSH (Thyroid Stimulating Horm) 8.44 mcIU/mL (0.34-5.60)
[2016-09-22] MEDS: Acetaminophen SUPP* 650 MG SUPP PR PRN (15:56)
--- NOTE | 2016-09-22 16:05 | PN ---
Progress Note - Progress Note Date of Service: 09/22/16 Note: Time spent on patient care 45 minutes.
--- NOTE | 2016-09-22 17:15 | OP ---
DATE OF OPERATION: 09/22/16 - ROOM #411 DATE OF : 34 SURGEON: Inderjit Hussein MD. BRICKLAYER APPRENTICE: None. ANESTHESIOLOGIST: Dr. Mark. ANESTHESIA: LMAC anesthesia PRE-OP DIAGNOSES: Pulmonary embolus with colitis and GI bleed. POST-OP DIAGNOSES: Pulmonary embolus with colitis and GI bleed. OPERATIVE PROCEDURE: Placement of right transfemoral inferior vena cava filter. DESCRIPTION OF PROCEDURE: The patient was supine on the operative table. The patient in appropriately padded position, then secured to the table. The right groin is prepped with antiseptic, draped in a sterile fashion. Local infiltrative anesthesia was administered and he did also have intravenous antibiotics prior to the procedure. Right femoral venipuncture was carried out. Guidewire was passed under fluoroscopic guidance. The dilator catheters were passed under guidance and then the sheath introducer was passed. The IVC filter was delivered to approximately the L2-3 level under fluoroscopy, it deployed perfectly well. Everything had been irrigated and flushed appropriately. The sheath was removed. Pressure was held for 5 to 10 minutes. The skin site was closed with 5-0 Vicryl followed by Steri-Strips. He tolerated the procedure well. He was brought to the recovery in good condition. No complications. No drains. No pathologic specimens. Sponge and instrument counts correct. Estimated blood loss is less than 30 mL. [id number]/CPS #: [id number] [facility]
[2016-09-22] MEDS: Morphine ORAL CONCENTRATE* 5 MG/0.25 ML ORAL.SYRIN SL PRN (19:13)
[2016-09-23] MEDS: Morphine ORAL CONCENTRATE* 5 MG/0.25 ML ORAL.SYRIN SL PRN ×2 (01:22→05:53)
[2016-09-23] MEDS: NS 0.9% 1000 ML* 1,000 ML IV SCH (03:19)
[2016-09-23] MEDS: Levothyroxine INJ* 100 MCG/5 ML VIAL IV SCH (05:49)
[2016-09-23] MEDS: Pantoprazole IV* 40 MG IV SCH (11:10)
--- NOTE | 2016-09-23 11:59 | PN ---
Subjective Date of Service: 09/23/16 Interval History: Patient not able to make his needs known. Objective Active Medications: Acetaminophen (Tylenol Supp*) 650 mg [place] Q4H PRN PRN Reason: TEMP EQUAL OR GREATER 101 F Last Admin: 09/22/16 15:56 Dose: 650 mg Albuterol (Ventolin 2.5 Mg/3 Ml Neb.Anamaria*) 2.5 mg INH Q2H PRN PRN Reason: SOB/WHEEZING Levothyroxine Sodium (Synthroid Tab*) 88 mcg PO DAILY@0600 [facility] Morphine Sulfate (Morphine Oral Concentrate*) 5 mg SL Q30M PRN PRN Reason: PAIN Last Admin: 09/23/16 05:53 Dose: 5 mg Omeprazole (Prilosec Cap*) 20 mg PO 0600 [facility] Ondansetron HCl (Zofran Inj*) 4 mg IV Q6H PRN PRN Reason: NAUSEA Rivaroxaban (Xarelto(*)) 15 mg PO BID [facility] Vital Signs 09/22/16 09/22/16 09/22/16 12:17 15:15 15:30 Temperature 98.2 F 99.6 F 101.1 F Pulse Rate 80 78 Respiratory 24 24 Rate Blood Pressure 133/51 95/69 (mmHg) O2 Sat by Pulse 91 97 Oximetry 09/22/16 09/22/16 09/22/16 19:13 20:00 21:13 Temperature Pulse Rate Respiratory 16 18 14 Rate Blood Pressure (mmHg) O2 Sat by Pulse Oximetry 09/23/16 09/23/16 09/23/16 00:33 01:22 03:44 Temperature 98.5 F 98.3 F Pulse Rate 74 38 Respiratory 16 18 16 Rate Blood Pressure 116/53 123/78 (mmHg) O2 Sat by Pulse 98 85 Oximetry 09/23/16 09/23/16 09/23/16 04:29 05:53 07:24 Temperature 98.1 F Pulse Rate 52 71 Respiratory 22 16 Rate Blood Pressure 104/42 (mmHg) O2 Sat by Pulse 79 95 Oximetry 09/23/16 09/23/16 09/23/16 07:53 08:00 08:36 Temperature Pulse Rate 68 Respiratory 18 22 16 Rate Blood Pressure (mmHg) O2 Sat by Pulse 98 Oximetry Oxygen Devices in Use Now: Simple Face Mask Appearance: Alert, in a chair. Flat affect. Looks comfortable. Eyes: No Scleral Icterus Neck: NL Appearance and Movements; NL JVP, No Thyroid Enlargement, Masses Respiratory: Symmetrical Chest Expansion and Respiratory Effort, Clear to Auscultation, Clear to Percussion Skin: No Rash or Ulcers, No Nodules or Sclerosis, - Neurological: NL Sensation - Poor to fair eye contact. Very passive. Disoriented. No tremor. Sparse speech. Poor hearing. Result Diagrams: 09/22/16 08:47 09/22/16 08:47 Additional Lab and Data: Lab Results 09/21/16 09/21/16 09/21/16 Range/Units 17:47 17:47 17:47 WBC 24.6 H (3.5-10.8) 10^3/ul RBC 4.57 (4.0-5.4) 10^6/ul Hgb 13.4 L (14.0-18.0) g/dl Hct 42 (42-52) % MCV 91 (80-94) fL MCH 29 (27-31) pg MCHC 32 (31-36) g/dl RDW 15 (10.5-15) % Plt Count 210 (150-450) 10^3/ul MPV 8 (7.4-10.4) um3 Immature Gran % (Auto) 17 H (0-9) % Neut % (Auto) 85.6 H (38-83) % Lymph % (Auto) 6.1 L (25-47) % [place] % (Auto) 7.6 (1-9) % Eos % (Auto) 0.1 (0-6) % Baso % (Auto) 0.6 (0-2) % Absolute Neuts (auto) 21.0 H (1.5-7.7) 10^3/ul Absolute Lymphs (auto) 1.5 (1.0-4.8) 10^3/ul Absolute Monos (auto) 1.9 H (0-0.8) 10^3/ul Absolute Eos (auto) 0 (0-0.6) 10^3/ul Absolute Basos (auto) 0.1 (0-0.2) 10^3/ul Absolute Nucleated RBC 0.01 10^3/ul Neutrophils % 69 (38-83) % Band Neutrophils % 14 H (0-8) % Lymphocytes % 12 L (25-47) % Monocytes % 5 (0-13) % Nucleated RBC % 0 Normal RBC Morphology Normal (Normal) Sodium 135 (133-145) mmol/L Potassium 4.6 (3.5-5.0) mmol/L Chloride 103 (101-111) mmol/L Carbon Dioxide 22 (22-32) mmol/L Anion Gap 10 (2-11) mmol/L BUN 39 H (6-24) mg/dL Creatinine 1.46 H (0.67-1.17) mg/dL Est GFR ( Amer) 59.3 (>60) Est GFR (Non-Af Amer) 46.1 (>60) BUN/Creatinine Ratio 26.7 H (8-20) Glucose 138 H (70-100) mg/dL Lactic Acid 1.3 (0.5-2.0) mmol/L Calcium 9.5 (8.6-10.3) mg/dL Magnesium 2.2 (1.9-2.7) mg/dL Total Bilirubin 0.80 (0.2-1.0) mg/dL AST 19 (13-39) U/L ALT 10 (7-52) U/L Alkaline Phosphatase 62 (34-104) U/L Total Creatine Kinase 178 (10-223) U/L C-Reactive Protein 171.02 H (< 5.00) mg/L B-Natriuretic Peptide ( - 100) pg/mL Total Protein 7.2 (6.4-8.9) g/dL Albumin 3.6 (3.2-5.2) g/dL Globulin 3.6 (2-4) g/dL Albumin/Globulin Ratio 1.0 (1-3) Amylase 16 L (29-103) U/L Lipase < 10 L (11.0-82.0) U/L Blood Type Antibody Screen 09/21/16 09/21/16 Range/Units 17:47 17:47 WBC (3.5-10.8) 10^3/ul RBC (4.0-5.4) 10^6/ul Hgb (14.0-18.0) g/dl Hct (42-52) % MCV (80-94) fL MCH (27-31) pg MCHC (31-36) g/dl RDW (10.5-15) % Plt Count (150-450) 10^3/ul MPV (7.4-10.4) um3 Immature Gran % (Auto) (0-9) % Neut % (Auto) (38-83) % Lymph % (Auto) (25-47) % [place] % (Auto) (1-9) % Eos % (Auto) (0-6) % Baso % (Auto) (0-2) % Absolute Neuts (auto) (1.5-7.7) 10^3/ul Absolute Lymphs (auto) (1.0-4.8) 10^3/ul Absolute Monos (auto) (0-0.8) 10^3/ul Absolute Eos (auto) (0-0.6) 10^3/ul Absolute Basos (auto) (0-0.2) 10^3/ul Absolute Nucleated RBC 10^3/ul Neutrophils % (38-83) % Band Neutrophils % (0-8) % Lymphocytes % (25-47) % Monocytes % (0-13) % Nucleated RBC % Normal RBC Morphology (Normal) Sodium (133-145) mmol/L Potassium (3.5-5.0) mmol/L Chloride (101-111) mmol/L Carbon Dioxide (22-32) mmol/L Anion Gap (2-11) mmol/L BUN (6-24) mg/dL Creatinine (0.67-1.17) mg/dL Est GFR ( Amer) (>60) Est GFR (Non-Af Amer) (>60) BUN/Creatinine Ratio (8-20) Glucose (70-100) mg/dL Lactic Acid (0.5-2.0) mmol/L Calcium (8.6-10.3) mg/dL Magnesium (1.9-2.7) mg/dL Total Bilirubin (0.2-1.0) mg/dL AST (13-39) U/L ALT (7-52) U/L Alkaline Phosphatase (34-104) U/L Total Creatine Kinase (10-223) U/L C-Reactive Protein (< 5.00) mg/L B-Natriuretic Peptide 316 H ( - 100) pg/mL Total Protein (6.4-8.9) g/dL Albumin (3.2-5.2) g/dL Globulin (2-4) g/dL Albumin/Globulin Ratio (1-3) Amylase (29-103) U/L Lipase (11.0-82.0) U/L Blood Type A Positive Antibody Screen Negative Assess/Plan/Problems-Billing Assessment: - Patient Problems (1) Dementia Current Visit: Yes Status: Acute Code(s): F03.90 - UNSPECIFIED DEMENTIA WITHOUT BEHAVIORAL DISTURBANCE SNOMED Code(s): 31310875 Comment: I spoke with and son 09/23. The patient is starting to eat significant amounts, not choking. His life expectancy is uncertain, likely less than 6 months. I will give him rivaroxaban, omeprazole, levothyroxine but no other of his home meds. They are making arragements so they can take him home, and welcome Hospice help. (2) Colitis Current Visit: Yes Status: Acute Code(s): K52.9 - NONINFECTIVE GASTROENTERITIS AND COLITIS, UNSPECIFIED SNOMED Code(s): 70030508 Comment: Bleeding and diarrhea seem to have stopped. ? self-limited infectious process. 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 Add rivaroxaban to prevent leg swelling from accumulated clot.
[2016-09-23] MEDS: Rivaroxaban TAB(*) 15 MG PO SCH (21:39)
[2016-09-23] MEDS: Acetaminophen SUPP* 650 MG SUPP PR PRN (21:39)
[2016-09-24] MEDS: Levothyroxine TAB* 88 MCG TAB PO SCH (05:43)
[2016-09-24] MEDS: Omeprazole CAP* 20 MG PO SCH (05:43)
[2016-09-24 06:14] LABS: Hematocrit 33 % (42-52); Hemoglobin 10.8 g/dl (14.0-18.0); Mean Corpuscular HGB Conc 33 g/dl (31-36); Mean Corpuscular Hemoglobin 30 pg (27-31); Mean Corpuscular Volume 91 fL (80-94); Mean Platelet Volume 8 um3 (7.4-10.4); Red Blood Count 3.58 10^6/ul (4.0-5.4); Red Cell Distribution Width 15 % (10.5-15); White Blood Count 10.5 10^3/ul (3.5-10.8)
[2016-09-24 06:27] LABS: BUN/Creatinine Ratio 21.9 (8-20); Calcium 8.5 mg/dL (8.6-10.3); EGFR African American 78.9 (>60); EGFR Non-African American 61.3 (>60); Potassium 3.8 mmol/L (3.5-5.0)
[2016-09-24] MEDS: Rivaroxaban TAB(*) 15 MG PO SCH ×2 (09:34→20:25)
--- NOTE | 2016-09-24 12:42 | PN ---
Subjective Date of Service: 09/24/16 Interval History: Patient not able to make his needs known. Objective Active Medications: Acetaminophen (Tylenol Supp*) 650 mg [place] Q4H PRN PRN Reason: TEMP EQUAL OR GREATER 101 F Last Admin: 09/23/16 21:39 Dose: 650 mg Albuterol (Ventolin 2.5 Mg/3 Ml Neb.Anamaria*) 2.5 mg INH Q2H PRN PRN Reason: SOB/WHEEZING Levothyroxine Sodium (Synthroid Tab*) 88 mcg PO DAILY@0600 [facility] Last Admin: 09/24/16 05:43 Dose: 88 mcg Morphine Sulfate (Morphine Oral Concentrate*) 5 mg SL Q30M PRN PRN Reason: PAIN Last Admin: 09/23/16 05:53 Dose: 5 mg Omeprazole (Prilosec Cap*) 20 mg PO 0600 [facility] Last Admin: 09/24/16 05:43 Dose: 20 mg Ondansetron HCl (Zofran Inj*) 4 mg IV Q6H PRN PRN Reason: NAUSEA Rivaroxaban (Xarelto(*)) 15 mg PO BID [facility] Last Admin: 09/24/16 09:34 Dose: 15 mg Vital Signs 09/23/16 09/23/16 09/23/16 15:30 15:31 15:59 Temperature 99.2 F Pulse Rate 148 91 Respiratory 24 Rate Blood Pressure 156/118 (mmHg) O2 Sat by Pulse 90 95 Oximetry 09/23/16 09/23/16 09/23/16 19:44 20:00 23:06 Temperature 100.2 F 97.6 F Pulse Rate 101 78 67 Respiratory 16 14 16 Rate Blood Pressure 94/56 147/67 (mmHg) O2 Sat by Pulse 96 97 99 Oximetry 09/24/16 09/24/16 00:10 08:31 Temperature 98.3 F Pulse Rate 78 78 Respiratory 14 14 Rate Blood Pressure 111/53 (mmHg) O2 Sat by Pulse 97 97 Oximetry Oxygen Devices in Use Now: None Appearance: Alert, partly up in bed. Neutral affect. Looks comfortable but restless. Respiratory: Symmetrical Chest Expansion and Respiratory Effort, Clear to Auscultation, Clear to Percussion Cardiovascular: NL Sounds; No Murmurs; No JVD, RRR - Non-verbal. Poor eye contact. Fidgety. No tremor., No Edema, - Result Diagrams: 09/24/16 05:18 09/24/16 05:18 Additional Lab and Data: Lab Results 09/21/16 09/21/16 09/21/16 Range/Units 17:47 17:47 17:47 WBC 24.6 H (3.5-10.8) 10^3/ul RBC 4.57 (4.0-5.4) 10^6/ul Hgb 13.4 L (14.0-18.0) g/dl Hct 42 (42-52) % MCV 91 (80-94) fL MCH 29 (27-31) pg MCHC 32 (31-36) g/dl RDW 15 (10.5-15) % Plt Count 210 (150-450) 10^3/ul MPV 8 (7.4-10.4) um3 Immature Gran % (Auto) 17 H (0-9) % Neut % (Auto) 85.6 H (38-83) % Lymph % (Auto) 6.1 L (25-47) % [place] % (Auto) 7.6 (1-9) % Eos % (Auto) 0.1 (0-6) % Baso % (Auto) 0.6 (0-2) % Absolute Neuts (auto) 21.0 H (1.5-7.7) 10^3/ul Absolute Lymphs (auto) 1.5 (1.0-4.8) 10^3/ul Absolute Monos (auto) 1.9 H (0-0.8) 10^3/ul Absolute Eos (auto) 0 (0-0.6) 10^3/ul Absolute Basos (auto) 0.1 (0-0.2) 10^3/ul Absolute Nucleated RBC 0.01 10^3/ul Neutrophils % 69 (38-83) % Band Neutrophils % 14 H (0-8) % Lymphocytes % 12 L (25-47) % Monocytes % 5 (0-13) % Nucleated RBC % 0 Normal RBC Morphology Normal (Normal) Sodium 135 (133-145) mmol/L Potassium 4.6 (3.5-5.0) mmol/L Chloride 103 (101-111) mmol/L Carbon Dioxide 22 (22-32) mmol/L Anion Gap 10 (2-11) mmol/L BUN 39 H (6-24) mg/dL Creatinine 1.46 H (0.67-1.17) mg/dL Est GFR ( Amer) 59.3 (>60) Est GFR (Non-Af Amer) 46.1 (>60) BUN/Creatinine Ratio 26.7 H (8-20) Glucose 138 H (70-100) mg/dL Lactic Acid 1.3 (0.5-2.0) mmol/L Calcium 9.5 (8.6-10.3) mg/dL Magnesium 2.2 (1.9-2.7) mg/dL Total Bilirubin 0.80 (0.2-1.0) mg/dL AST 19 (13-39) U/L ALT 10 (7-52) U/L Alkaline Phosphatase 62 (34-104) U/L Total Creatine Kinase 178 (10-223) U/L C-Reactive Protein 171.02 H (< 5.00) mg/L B-Natriuretic Peptide ( - 100) pg/mL Total Protein 7.2 (6.4-8.9) g/dL Albumin 3.6 (3.2-5.2) g/dL Globulin 3.6 (2-4) g/dL Albumin/Globulin Ratio 1.0 (1-3) Amylase 16 L (29-103) U/L Lipase < 10 L (11.0-82.0) U/L Blood Type Antibody Screen 09/21/16 09/21/16 Range/Units 17:47 17:47 WBC (3.5-10.8) 10^3/ul RBC (4.0-5.4) 10^6/ul Hgb (14.0-18.0) g/dl Hct (42-52) % MCV (80-94) fL MCH (27-31) pg MCHC (31-36) g/dl RDW (10.5-15) % Plt Count (150-450) 10^3/ul MPV (7.4-10.4) um3 Immature Gran % (Auto) (0-9) % Neut % (Auto) (38-83) % Lymph % (Auto) (25-47) % [place] % (Auto) (1-9) % Eos % (Auto) (0-6) % Baso % (Auto) (0-2) % Absolute Neuts (auto) (1.5-7.7) 10^3/ul Absolute Lymphs (auto) (1.0-4.8) 10^3/ul Absolute Monos (auto) (0-0.8) 10^3/ul Absolute Eos (auto) (0-0.6) 10^3/ul Absolute Basos (auto) (0-0.2) 10^3/ul Absolute Nucleated RBC 10^3/ul Neutrophils % (38-83) % Band Neutrophils % (0-8) % Lymphocytes % (25-47) % Monocytes % (0-13) % Nucleated RBC % Normal RBC Morphology (Normal) Sodium (133-145) mmol/L Potassium (3.5-5.0) mmol/L Chloride (101-111) mmol/L Carbon Dioxide (22-32) mmol/L Anion Gap (2-11) mmol/L BUN (6-24) mg/dL Creatinine (0.67-1.17) mg/dL Est GFR ( Amer) (>60) Est GFR (Non-Af Amer) (>60) BUN/Creatinine Ratio (8-20) Glucose (70-100) mg/dL Lactic Acid (0.5-2.0) mmol/L Calcium (8.6-10.3) mg/dL Magnesium (1.9-2.7) mg/dL Total Bilirubin (0.2-1.0) mg/dL AST (13-39) U/L ALT (7-52) U/L Alkaline Phosphatase (34-104) U/L Total Creatine Kinase (10-223) U/L C-Reactive Protein (< 5.00) mg/L B-Natriuretic Peptide 316 H ( - 100) pg/mL Total Protein (6.4-8.9) g/dL Albumin (3.2-5.2) g/dL Globulin (2-4) g/dL Albumin/Globulin Ratio (1-3) Amylase (29-103) U/L Lipase (11.0-82.0) U/L Blood Type A Positive Antibody Screen Negative Assess/Plan/Problems-Billing Assessment: - Patient Problems (1) Dementia Current Visit: Yes Status: Acute Code(s): F03.90 - UNSPECIFIED DEMENTIA WITHOUT BEHAVIORAL DISTURBANCE SNOMED Code(s): 31678550 Comment: I spoke with and son 09/23. The patient is starting to eat significant amounts, not choking. His life expectancy is uncertain, likely less than 6 months. I will give him rivaroxaban, omeprazole, levothyroxine but no other of his home meds. They are making arragements so they can take him home, and welcome Hospice help. (2) Colitis Current Visit: Yes Status: Acute Code(s): K52.9 - NONINFECTIVE GASTROENTERITIS AND COLITIS, UNSPECIFIED SNOMED Code(s): 20680977 Comment: Bleeding and diarrhea seem to have stopped. ? self-limited infectious process. 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 Add rivaroxaban to prevent leg swelling from accumulated clot. (4) Fever Current Visit: Yes Status: Acute Code(s): R50.9 - FEVER, UNSPECIFIED SNOMED Code(s): 095900180 Comment: Possibly due to intermittent aspiration. As he is comforta care, would only treat significant symptoms. I would advise the family to not encourage eating or drinking. (5) Elevated TSH Current Visit: Yes Status: Acute Code(s): R94.6 - ABNORMAL RESULTS OF THYROID FUNCTION STUDIES SNOMED Code(s): 820712659 Comment: Only one abnormal TSH recorded. I would not pursue this in view of his comfort care status.
[2016-09-25] MEDS: Omeprazole CAP* 20 MG PO SCH (05:27)
[2016-09-25] MEDS: Levothyroxine TAB* 88 MCG TAB PO SCH (05:27)
[2016-09-25] MEDS: Rivaroxaban TAB(*) 15 MG PO SCH ×2 (08:34→20:35)
--- NOTE | 2016-09-25 14:19 | PN ---
Subjective Date of Service: 09/25/16 Interval History: He offers no c/o. Objective Active Medications: Acetaminophen (Tylenol Supp*) 650 mg [place] Q4H PRN PRN Reason: TEMP EQUAL OR GREATER 101 F Last Admin: 09/23/16 21:39 Dose: 650 mg Albuterol (Ventolin 2.5 Mg/3 Ml Neb.Anamaria*) 2.5 mg INH Q2H PRN PRN Reason: SOB/WHEEZING Levothyroxine Sodium (Synthroid Tab*) 88 mcg PO DAILY@0600 [facility] Last Admin: 09/25/16 05:27 Dose: 88 mcg Morphine Sulfate (Morphine Oral Concentrate*) 5 mg SL Q30M PRN PRN Reason: PAIN Last Admin: 09/23/16 05:53 Dose: 5 mg Omeprazole (Prilosec Cap*) 20 mg PO 0600 [facility] Last Admin: 09/25/16 05:27 Dose: 20 mg Ondansetron HCl (Zofran Inj*) 4 mg IV Q6H PRN PRN Reason: NAUSEA Rivaroxaban (Xarelto(*)) 15 mg PO BID [facility] Last Admin: 09/25/16 08:34 Dose: 15 mg Vital Signs 09/24/16 09/24/16 09/24/16 20:00 20:35 20:41 Temperature 98.5 F Pulse Rate 82 74 Respiratory 15 20 Rate Blood Pressure 152/44 (mmHg) O2 Sat by Pulse 95 84 100 Oximetry 09/24/16 09/25/16 09/25/16 23:20 00:00 01:50 Temperature Pulse Rate 82 Respiratory Rate Blood Pressure 130/44 (mmHg) O2 Sat by Pulse 95 95 94 Oximetry 09/25/16 09/25/16 09/25/16 04:14 04:15 07:37 Temperature 99.6 F 98.4 F Pulse Rate 77 75 70 Respiratory 16 16 Rate Blood Pressure 139/59 112/36 (mmHg) O2 Sat by Pulse 91 95 Oximetry 09/25/16 09/25/16 09/25/16 08:00 08:30 08:40 Temperature Pulse Rate Respiratory 16 Rate Blood Pressure (mmHg) O2 Sat by Pulse 94 92 Oximetry 09/25/16 08:49 Temperature Pulse Rate 63 Respiratory 14 Rate Blood Pressure (mmHg) O2 Sat by Pulse 97 Oximetry Oxygen Devices in Use Now: None Appearance: Awake in a chair. Neutral affect, sl fidgety, otherwise looks comfortable. Eyes: No Scleral Icterus Respiratory: Symmetrical Chest Expansion and Respiratory Effort, Clear to Auscultation, Clear to Percussion Cardiovascular: NL Sounds; No Murmurs; No JVD, RRR, No Edema, - Extremities: No Edema, No Clubbing, Cyanosis, - Skin: No Rash or Ulcers, No Nodules or Sclerosis, - Neurological: NL Sensation - He can say his whole name but cannot answer any other questions. Result Diagrams: 09/24/16 05:18 09/24/16 05:18 Additional Lab and Data: Lab Results 09/21/16 09/21/16 09/21/16 Range/Units 17:47 17:47 17:47 WBC 24.6 H (3.5-10.8) 10^3/ul RBC 4.57 (4.0-5.4) 10^6/ul Hgb 13.4 L (14.0-18.0) g/dl Hct 42 (42-52) % MCV 91 (80-94) fL MCH 29 (27-31) pg MCHC 32 (31-36) g/dl RDW 15 (10.5-15) % Plt Count 210 (150-450) 10^3/ul MPV 8 (7.4-10.4) um3 Immature Gran % (Auto) 17 H (0-9) % Neut % (Auto) 85.6 H (38-83) % Lymph % (Auto) 6.1 L (25-47) % [place] % (Auto) 7.6 (1-9) % Eos % (Auto) 0.1 (0-6) % Baso % (Auto) 0.6 (0-2) % Absolute Neuts (auto) 21.0 H (1.5-7.7) 10^3/ul Absolute Lymphs (auto) 1.5 (1.0-4.8) 10^3/ul Absolute Monos (auto) 1.9 H (0-0.8) 10^3/ul Absolute Eos (auto) 0 (0-0.6) 10^3/ul Absolute Basos (auto) 0.1 (0-0.2) 10^3/ul Absolute Nucleated RBC 0.01 10^3/ul Neutrophils % 69 (38-83) % Band Neutrophils % 14 H (0-8) % Lymphocytes % 12 L (25-47) % Monocytes % 5 (0-13) % Nucleated RBC % 0 Normal RBC Morphology Normal (Normal) Sodium 135 (133-145) mmol/L Potassium 4.6 (3.5-5.0) mmol/L Chloride 103 (101-111) mmol/L Carbon Dioxide 22 (22-32) mmol/L Anion Gap 10 (2-11) mmol/L BUN 39 H (6-24) mg/dL Creatinine 1.46 H (0.67-1.17) mg/dL Est GFR ( Amer) 59.3 (>60) Est GFR (Non-Af Amer) 46.1 (>60) BUN/Creatinine Ratio 26.7 H (8-20) Glucose 138 H (70-100) mg/dL Lactic Acid 1.3 (0.5-2.0) mmol/L Calcium 9.5 (8.6-10.3) mg/dL Magnesium 2.2 (1.9-2.7) mg/dL Total Bilirubin 0.80 (0.2-1.0) mg/dL AST 19 (13-39) U/L ALT 10 (7-52) U/L Alkaline Phosphatase 62 (34-104) U/L Total Creatine Kinase 178 (10-223) U/L C-Reactive Protein 171.02 H (< 5.00) mg/L B-Natriuretic Peptide ( - 100) pg/mL Total Protein 7.2 (6.4-8.9) g/dL Albumin 3.6 (3.2-5.2) g/dL Globulin 3.6 (2-4) g/dL Albumin/Globulin Ratio 1.0 (1-3) Amylase 16 L (29-103) U/L Lipase < 10 L (11.0-82.0) U/L Blood Type Antibody Screen 09/21/16 09/21/16 Range/Units 17:47 17:47 WBC (3.5-10.8) 10^3/ul RBC (4.0-5.4) 10^6/ul Hgb (14.0-18.0) g/dl Hct (42-52) % MCV (80-94) fL MCH (27-31) pg MCHC (31-36) g/dl RDW (10.5-15) % Plt Count (150-450) 10^3/ul MPV (7.4-10.4) um3 Immature Gran % (Auto) (0-9) % Neut % (Auto) (38-83) % Lymph % (Auto) (25-47) % [place] % (Auto) (1-9) % Eos % (Auto) (0-6) % Baso % (Auto) (0-2) % Absolute Neuts (auto) (1.5-7.7) 10^3/ul Absolute Lymphs (auto) (1.0-4.8) 10^3/ul Absolute Monos (auto) (0-0.8) 10^3/ul Absolute Eos (auto) (0-0.6) 10^3/ul Absolute Basos (auto) (0-0.2) 10^3/ul Absolute Nucleated RBC 10^3/ul Neutrophils % (38-83) % Band Neutrophils % (0-8) % Lymphocytes % (25-47) % Monocytes % (0-13) % Nucleated RBC % Normal RBC Morphology (Normal) Sodium (133-145) mmol/L Potassium (3.5-5.0) mmol/L Chloride (101-111) mmol/L Carbon Dioxide (22-32) mmol/L Anion Gap (2-11) mmol/L BUN (6-24) mg/dL Creatinine (0.67-1.17) mg/dL Est GFR ( Amer) (>60) Est GFR (Non-Af Amer) (>60) BUN/Creatinine Ratio (8-20) Glucose (70-100) mg/dL Lactic Acid (0.5-2.0) mmol/L Calcium (8.6-10.3) mg/dL Magnesium (1.9-2.7) mg/dL Total Bilirubin (0.2-1.0) mg/dL AST (13-39) U/L ALT (7-52) U/L Alkaline Phosphatase (34-104) U/L Total Creatine Kinase (10-223) U/L C-Reactive Protein (< 5.00) mg/L B-Natriuretic Peptide 316 H ( - 100) pg/mL Total Protein (6.4-8.9) g/dL Albumin (3.2-5.2) g/dL Globulin (2-4) g/dL Albumin/Globulin Ratio (1-3) Amylase (29-103) U/L Lipase (11.0-82.0) U/L Blood Type A Positive Antibody Screen Negative Assess/Plan/Problems-Billing Assessment: - Patient Problems (1) Dementia Current Visit: Yes Status: Acute Code(s): F03.90 - UNSPECIFIED DEMENTIA WITHOUT BEHAVIORAL DISTURBANCE SNOMED Code(s): 08260431 Comment: I spoke with and son 09/23. The patient is starting to eat significant amounts, not choking. Continue rivaroxaban, omeprazole, levothyroxine but no other of his home meds. They are making arragements so they can take him home, and welcome Hospice help. (2) Colitis Current Visit: Yes Status: Acute Code(s): K52.9 - NONINFECTIVE GASTROENTERITIS AND COLITIS, UNSPECIFIED SNOMED Code(s): 45662475 Comment: Bleeding and diarrhea seem to have stopped. ? self-limited infectious process. 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 Add rivaroxaban to prevent leg swelling from accumulated clot. CBC 09/27. (4) Fever Current Visit: Yes Status: Acute Code(s): R50.9 - FEVER, UNSPECIFIED SNOMED Code(s): 872034774 Comment: As of 09/25, temp under 100 past 36 hrs. Possibly due to intermittent aspiration. As he is comfort care, would only treat significant symptoms. I would advise the family to not encourage eating or drinking. (5) Elevated TSH Current Visit: Yes Status: Acute Code(s): R94.6 - ABNORMAL RESULTS OF THYROID FUNCTION STUDIES SNOMED Code(s): 183833137 Comment: Only one abnormal TSH recorded. Not clear if med compliance was good at home. Consider repeat TSH in 2-3 weeks.
--- NOTE | 2016-09-25 17:21 | CONS ---
CC: Katelyn Banks NP * PALLIATIVE CARE CONSULTATION: DATE OF CONSULT: 09/25/16 PRIMARY CARE PROVIDER: Katelyn Banks NP * REFERRING PHYSICIAN: Maximo Almaguer MD HOSPITAL COURSE: This is an 85-year-old male with a past medical history of [id number] dementia, CVA, and hypertension who presented to the emergency room with bloody diarrhea and abdominal pain. My history is obtained from the son, Chuy, who states the patient has been doing well up until 2 days prior to admission. Normally, he ambulates independently. He is able to express his needs, and according to the son, he eats all the time. Prior to his admission, he developed cramping abdominal pain, which initially was diarrhea and then became bloody diarrhea. They brought him to the emergency room on the evening of 09/21/16. CAT scan showed colitis, and was also noted to find right lower extremity DVT. Because of the bloody diarrhea, it was felt that he was not a candidate for anticoagulation and Dr. Hussein had placed an IVC filter and the patient was initially started on IV fluids and broad- spectrum antibiotics. He was initially placed in the ICU as well for concern of potential PE. The patient was initially unresponsive and not eating and failed a swallow eval. At that time, Palliative Care was consulted. Since then , the patient has become more alert. He has passed the swallow eval, and he has been more verbal now, according to the son. He did get up and got out of the chair. Physical Therapy is yet to evaluate him. I spoke with the son, and I also called the , Beth, and spoke at length that because he was doing relatively well at home, ambulating, eating, and expressing his needs that he does not appear to be a candidate for hospice at this time. I think time will tell. If he does a short course of rehab and does not improve and continues to decline, then they should have hospice reevaluate him. The goal for them is to get him home, although they need to get more services in place if he is not where he was prior to this admission. Otherwise, the patient is not able to go through a thorough review of systems. He is able to tell me his name, but does not know where he is or the date. PAST MEDICAL HISTORY: 1. CVA. 2. Hypertension. 3. Dementia, moderate to severe. 4. Hypothyroidism. 6. GERD. 7. Vitamin B12 deficiency. INPATIENT MEDICATIONS: 1. Tylenol 650 mg every 4 hours as needed. 2. Albuterol 2.5 inhaled every 2 hours as needed. 3. Synthroid 88 mcg daily. 4. Morphine 5 mg sublingual q.30 hours. 5. Omeprazole 20 mg daily. 6. Zofran 4 mg IV q.6 hours as needed. 7. Rivaroxaban 50 mg p.o. b.i.d. ALLERGIES: No known drug allergies. FAMILY HISTORY: Reviewed and noncontributory. SOCIAL HISTORY: The patient lives at home with his Beth and his son Chuy who is helping care for him. They did have a aide coming 3 times a week. He is a former real estate services administrator. No tobacco, alcohol, or illicit drug use. His MOLST form is DNR/DNI. REVIEW OF SYSTEMS: Limited due to the patient's advanced dementia. PHYSICAL EXAM: Vitals: Temp 98.4, pulse rate 63, respiratory rate 14, oxygen saturation 97% on room air, blood pressure 112/36. General: The patient is awake and alert, did fall asleep during my conversation with his son. Pupils are equal and reactive, anicteric. Head: Normocephalic. Oropharynx: Mucous membranes are dry. No erythema or exudate. Neck: Supple. No lymphadenopathy. Cardiac: Regular rate and rhythm. Soft systolic murmur heard at the apex. Respiratory: Faint rhonchi bilaterally. No increased work of breathing or tachypnea. Abdomen: Firm, nontender, mild distention, hypoactive bowel sounds. Extremities: No clubbing. Trace pedal edema. Neurologic: Alert and oriented x1, oriented to self only. No focal neurologic deficits, diffuse weakness noted. ASSESSMENT: This is an 85-year-old male with a past medical history of dementia , who presented to the emergency room with colitis. It is unclear if is ischemic versus infectious. His diarrhea and gastrointestinal bleeding has since resolved over the past 48 hours. He is now more alert and eating. I spoke with the family at length regarding my recommendation for a trial of rehab. If he is not successful, then he would be eligible for hospice. I spoke my recommendation with Dr. Almaguer and placed a RU consult, as well as the patient's family is interested in going to rehab here. Thank your for this consultation. TIME SPENT: Greater than 90 minutes were spent doing this consultation, more than half the time spent in direct patient contact. [id number]/[facility] #: [id number] XENIA
[2016-09-26] MEDS: Levothyroxine TAB* 88 MCG TAB PO SCH (05:32)
[2016-09-26] MEDS: Omeprazole CAP* 20 MG PO SCH (05:32)
[2016-09-26 07:50] VITALS: BP 120/50
[2016-09-26] MEDS: Rivaroxaban TAB(*) 15 MG PO SCH (09:39)
--- NOTE | 2016-09-26 09:48 | PN ---
Progress Note - Progress Note Date of Service: 09/26/16 Note: Additional diagnosis: aspiration pneumonitis.
--- NOTE | 2016-09-26 11:43 | PN ---
Progress Note - Progress Note Date of Service: 09/26/16 Note: Time spent on discharge 50 minutes.
--- NOTE | 2016-09-26 12:01 | DS ---
DATE OF ADMISSION: 09/21/2016. DATE OF DISCHARGE: 09/26/2016. HISTORY OF PRESENT ILLNESS: This 85-year-old man presented with abdominal pain. He had diarrhea, it became maroon colored. He has had chronic swelling of the legs, mostly the right leg. There was a filling defect in the right common femoral vein confirmed by ultrasound in the emergency room. Nikolas t same day, he had an IVC filter placed by Dr. Hussein. The patient's diarrhea and bleeding stopped. He was started on Rivaroxaban. His TSH was elevated, but his medication compliance at home was uncertain. I have not changed the d ose, but would repeat his TSH in two to three weeks. His Rivaroxaban should be changed in 19 more days to 20 mg once daily. FINAL DIAGNOSES: 1. Dementia. 2. Colitis, resolved. 3. Deep venous thrombosis, status post IVC filter. 4. Swallowing dysfunction. He did not tolerate pudding thick liquids and the recommendation by Spe ech Therapy was for him to be NPO. I would give him comfort feeding and not encourage oral intake. He had some intermittent low grade temperatures which may have been related to intermittent aspirat ion with pneumonitis. MEDICATIONS ON DISCHARGE: 1. Albuterol 2.5 mg by inhalation every 2 hours prn. 2. Morphine oil concentrate 5 mg sublingual every 30 minutes prn. 3. Rivaroxaban 15 mg b.i.d. for 19 days, then 20 mg daily. 4. Omeprazole 20 mg daily. 5. Levothyroxine 88 mcg daily. [id number]/[facility] #: [id number]
== END 2016-09-26 14:00 | DRG 252 ==
LOC: ED 16:00 → MED 22:08 → ICU 23:31 → MEDTELE 09-22 01:45 → MED 09-23 22:30
PROVIDERS: ADMIT Hospitalist; ATTEND Internal Medicine
PROC: 06H03DZ Insertion of Intraluminal Device into Inferior Vena Cava, Percutaneous Approach (ICD-10-PCS; principal; 2016-09-22 00:31)
DX: I82.411 Acute embolism and thrombosis of right femoral vein (principal); J69.0 Pneumonitis due to inhalation of food and vomit; I26.99 Other pulmonary embolism without acute cor pulmonale; K92.1 Melena; N17.9 Acute kidney failure, unspecified; G45.9 Transient cerebral ischemic attack, unspecified; K52.9 Noninfective gastroenteritis and colitis, unspecified; F03.90 Unspecified dementia, unspecified severity, without behavioral disturbance, psychotic disturbance, mood disturbance, and anxiety; R94.6 Abnormal results of thyroid function studies; I10 Essential (primary) hypertension; E03.9 Hypothyroidism, unspecified; K21.9 Gastro-esophageal reflux disease without esophagitis; E53.8 Deficiency of other specified B group vitamins; Z66 Do not resuscitate; Z99.81 Dependence on supplemental oxygen; Z79.82 Long term (current) use of aspirin; Z79.899 Other long term (current) drug therapy; Z87.891 Personal history of nicotine dependence; Z82.49 Family history of ischemic heart disease and other diseases of the circulatory system
CPT/HCPCS: 36415; 37191; 71010; 74177; 80048; 80053; 81003; 81015; 82150; 82272; 82550; 83605; 83690; 83735; 83880; 84443; 85025; 86140; 86850; 86900; 86901; 87040; 94760; 96360; 99285; A9270-GY; C1880; J0690; J1644; J2001; J2543; J2704; Q9967

== ENCOUNTER 2017-04-06 23:42 | Inpatient (IN) | payer MEDICARE, BC ==
[2017-04-07] MEDS ORDERED: NS 0.9% 1000 ML* 1,000 ML IV ONE (00:17)
[2017-04-07 00:53] LABS: ABS Basophils 0.1 10^3/ul (0-0.2); ABS Eosinophils 0.1 10^3/ul (0-0.6); ABS Lymphocytes 1.2 10^3/ul (1.0-4.8); ABS Monocytes 0.8 10^3/ul (0-0.8); ABS Neutrophils 13.1 10^3/ul (1.5-7.7); ABS Nucleated RBC 0 10^3/ul; Eosinophil % 0.6 % (0-6); Hematocrit 37 % (42-52); Hemoglobin 12.6 g/dl (14.0-18.0); Lymphocyte % 7.7 % (25-47); Mean Corpuscular HGB Conc 34 g/dl (31-36); Mean Corpuscular Hemoglobin 31 pg (27-31); Mean Corpuscular Volume 92 fL (80-94); Mean Platelet Volume 8 um3 (7.4-10.4); Nucleated Red Blood Cells % 0; Platelet Count 199 10^3/ul (150-450); Red Blood Count 4.08 10^6/ul (4.0-5.4); Red Cell Distribution Width 14 % (10.5-15); White Blood Count 15.3 10^3/ul (3.5-10.8)
[2017-04-07 01:01] LABS: INR 1.27 (0.77-1.02)
[2017-04-07] MEDS ORDERED: Clopidogrel TAB* 300 MG PO ONE (01:16)
[2017-04-07] MEDS ORDERED: Aspirin Low Dose CHEW TAB* 81 MG PO ONE (01:16)
[2017-04-07] MEDS ORDERED: Metoprolol Tartrate IV* 1 MG/ML 5 ML VIAL IV ONE (01:17)
[2017-04-07 01:30] LABS: Urine Appearance Clear; Urine Blood 2+ (Negative); Urine Color Yellow; Urine Ketones Negative (Negative); Urine Protein Negative (Negative); Urine Urobilinogen Negative (Negative)
--- NOTE | 2017-04-07 01:40 | ED ---
Jonatan Urbina Abhishek, scribed for Caity Garcia MD on 04/07/17 at 0024 . Palpitations / Dysrhythmia - HPI Summary HPI Summary: This patient is a 86 year old M BIBA accompanied by patients son with a chief complaint of dysrhythmia/palpitation prior to [facility] arrival. Pt hx given by EMS report and pts son. According to EMS report, the pt was rapid Afib, which later became sinus rhythm enroute to the [facility]. Pt denies pain at arrival to the [facility]. The patients HR upon arrival was in the 90s. The patient rates the pain 0/10 in severity. Symptoms alleviated by nothing. Pertinent PMHx includes DVT, Alzheimers, and dementia. EMS and pts son reports Decreased appetite, CP (intermittent), SOB, coughing aggravated by food, tremors, lethargic and weakness. EMS and pts son denies ambulation, and fever. - History of Current Complaint Chief Complaint: EDDysrhythmPalp Time Seen by Provider: 04/06/17 23:51 Hx Obtained From: Family/Film Librarian, EMS Hx From Patient Unobtainable Due To: Other - Alzheimers Onset/Duration: Sudden Onset, Lasting Hours - since today Timing: Constant Severity Currently: None Alleviating: Nothing Associated Signs & Symptoms: Chest Pain - intermittent, Shortness of Breath - Allergy/Home Medications Allergies/Adverse Reactions: Allergies Allergy/AdvReac Type Severity Reaction Status Date / Time No Known Allergies Allergy Verified 04/07/17 00:10 Home Medications: Home Medications Rivaroxaban TAB(*) [Xarelto 15 mg(*)] 20 mg PO DAILY 04/07/17 [History Confirmed 04/07/17] Senna TAB* 2 tab PO BID 04/07/17 [History Confirmed 04/07/17] PMH/Surg Hx/FS Hx/Imm Hx Endocrine/Hematology History: Reports: Hx Thyroid Disease Denies: Hx Diabetes Cardiovascular History: Denies: Hx Hypertension, Hx Pacemaker/ICD Respiratory History: Denies: Hx Chronic Obstructive Pulmonary Disease (COPD) GI History: Reports: Hx Hiatal Hernia History: Denies: Hx Dialysis Sensory History: Reports: Hx Contacts or Glasses - reading only Denies: Hx Hearing Aid - hard of hearing,asks to repeat Opthamlomology History: Reports: Hx Contacts or Glasses - reading only Neurological History: Reports: Hx Dementia Denies: Hx Seizures Psychiatric History: Denies: Hx Panic Disorder - Surgical History Surgery Procedure, Year, and Place: broken bones,nothing that comes to mind. - Immunization History Date of Influenza Vaccine: has not received Infectious Disease History: Unable to Obtain/Confirm Infectious Disease History: Reports: Hx Shingles Denies: Traveled Outside the [place] in Last 30 Days - Family History Known Family History: Negative: Cardiac Disease, Diabetes - Social History Occupation: Retired Lives: With Family Alcohol Use: None Substance Use Type: Reports: None Smoking Status (MU): Former Smoker Review of Systems Negative: Fever Eyes: Negative ENT: Negative Positive: Chest Pain - intermittent Positive: Shortness Of Breath, Cough - aggravated by food Gastrointestinal: Other - Decreased appetite Genitourinary: Negative Musculoskeletal: Other - Negative ambulation Skin: Negative Neurological: Other - tremors Positive: Weakness Psychological: Other - lethargic All Other Systems Reviewed And Are Negative: Yes Physical Exam - Summary Physical Exam Summary: VITAL SIGNS: Reviewed. GENERAL: Elderly male doesnt seem in distress HEAD AND FACE: No signs of trauma. No ecchymosis, hematomas or skull depressions. No sinus tenderness. EYES: PERRLA, EOMI x 2, No injected conjunctiva, no nystagmus. EARS: Hearing grossly intact. Ear canals and tympanic membranes are within normal limits. MOUTH: Oropharynx within normal limits. NECK: Supple, trachea is midline, no adenopathy, no JVD, no carotid bruit, no c- spine tenderness, neck with full ROM. CHEST: Symmetric, no tenderness at palpation LUNGS: decreased breath sounds bilaterally CVS: Regular rate and rhythm, S1 and S2 present, no murmurs or gallops appreciated. ABDOMEN: Soft, non-tender. No signs of distention. No rebound no guarding, and no masses palpated. Bowel sounds are normal. EXTREMITIES: FROM in all major joints, no edema, no cyanosis or clubbing. NEURO: Alert orientated to his name SKIN: Dry and warm Triage Information Reviewed: Yes Vital Signs On Initial Exam: Initial Vitals Temp Pulse Resp BP Pulse Ox 98.9 F 98 16 126/62 92 04/06/17 23:42 04/06/17 23:42 04/06/17 23:42 04/06/17 23:42 04/06/17 23:42 Vital Signs Reviewed: Yes Diagnostics - Vital Signs Vital Signs Temp Pulse Resp BP Pulse Ox 04/07/17 00:02 97 22 133/61 100 04/07/17 00:01 88 19 67/51 99 04/06/17 23:42 98.9 F 98 16 126/62 92 - Laboratory Result Diagrams: 04/07/17 00:40 04/07/17 00:40 Lab Statement: Any lab studies that have been ordered have been reviewed, and results considered in the medical decision making process. - Radiology Chest X-ray Radiology Interpretation Completed By: ED Physician - Chest X-ray reveals no acute infiltrate and poor expiratory effort as per ED physician. - EKG 2351 EKG Rhythm: Sinus Rhythm - [address] Segment: Non-Specific EKG Interpretation: Taken at 2351: Q-waves at 3 and AVF EKG Comparison: No Significant Change Course/Dx - Course Course Of Treatment: Pt arrived to the [facility] with a chief complaint of palpitation. Pt hx was given by EMS report and pt's son. According to the EMS report, pt had rapid AFib prior to [facility] arrival that has become sinus rhythm enroute to the [facility]. In the ED course, pt given aspirin, Plavix loading and Beta bonny which is standard treatment for Non-STEMI. Pt was not given heparin because currently on Xarleto. We discussed pt care with Dr. Tolbert at 0134. The patient will be admitted to the [facility] with a dx of non-STEMI for further evaluation. - Diagnoses Provider Diagnoses: Non-STEMI (non-ST elevated myocardial infarction) - Physician Notifications Discussed Care Of Patient With: Demar Tolbert - We discussed pt care. Time Discussed With Above Provider: 01:34 Instructed by Provider To: Admit As Inpatient Discharge - Discharge Plan Condition: Stable Disposition: ADMITTED TO [facility] Referrals: No Primary Care Phys,NOPCP [Primary Care Provider] - The documentation as recorded by the Jonatan perez Abhishek accurately reflects the service I personally performed and the decisions made by me, Caity Garcia MD.
[2017-04-07] MEDS ORDERED: CMCS: Melatonin (NF) 3 MG TAB PO PRN (01:47)
[2017-04-07] MEDS ORDERED: Ondansetron INJ* 2 MG/ML VIAL IV PRN (01:47)
[2017-04-07] MEDS ORDERED: Albuterol 2.5 MG/3 ML NEB.SOL* (0.083%) INH PRN (01:47)
[2017-04-07] MEDS ORDERED: Acetaminophen TAB* 325 MG PO PRN (01:47)
[2017-04-07] MEDS ORDERED: NS 0.9% 1000 ML* 1,000 ML IV SCH (02:00)
[2017-04-07] MEDS ORDERED: Aspirin SUPP* 300 MG PR ONE (02:21)
[2017-04-07 05:34] LABS: Hematocrit 36 % (42-52); Mean Corpuscular HGB Conc 34 g/dl (31-36); Mean Corpuscular Hemoglobin 31 pg (27-31); Mean Corpuscular Volume 92 fL (80-94); Mean Platelet Volume 7 um3 (7.4-10.4); Platelet Count 171 10^3/ul (150-450); Red Blood Count 3.87 10^6/ul (4.0-5.4); Red Cell Distribution Width 14 % (10.5-15); White Blood Count 12.2 10^3/ul (3.5-10.8)
[2017-04-07 05:48] LABS: EGFR Non-African American 65.1 (>60)
[2017-04-07] MEDS: Levothyroxine TAB* 100 MCG TAB PO SCH (06:35)
[2017-04-07] MEDS: Omeprazole CAP* 20 MG PO SCH (06:35)
--- NOTE | 2017-04-07 06:48 | HP ---
H&P (Free Text) History and Physical: PCP: Jessica Mondragon NP Date/Time of Evaluation: 04/07/2017 CC: agitation, chest pain HPI: Mr Knapp is an 85YO male HX advanced dementia with difficulty making his needs known who was in his usual state of health yesterday AM until around noon when he family noticed he seemed more fatigued and confused with increased gait instability. He seemed anxious and fidgety. He went to bed around 2100 to awaken at 2200 agitated and able to convey chest discomfort prompting EMS to be called. Upon their arrival he was noted to be in AFIB with a rapid rate which converted to NSR while they were making attempts to obtain IV access. Family noted no emesis, sweats, respiratory distress, or other issues. ED evaluation is notable for an ECG showing NSR rate 94 w/ mild ST depression V4 -6 & I & Q-waves II/II/AVF. Troponin was 2.8, WBCs 15.3k 85% neutrophils, BNP 149, negative UA, & negative rapid influenza. He was given 300mg PO clopidogrel in ED, but had a very difficult time swallowing with a HX of dysphagia requiring honey thick fluids, but which is worse today per his son. He was given 300mg OR aspirin. No heparin 2nd concurrent rivaroxaban for recent HX DVT. PMedHx TIA/CVA HX DVT on rivaroxaban HTN hypothyroidism GERD vitamin B12 deficiency Ambulatory Orders Levothyroxine TAB* [Synthroid 88 MCG TAB*] 100 mcg PO DAILY 09/21/16 Rivaroxaban TAB(*) [Xarelto 15 mg(*)] 20 mg PO DAILY 04/07/17 Senna TAB* 2 tab PO BID 04/07/17 Allergies No Known Allergies Allergy (Verified 04/07/17 00:10) SocHx: former light smoker, occasional alcohol, no recreational drugs; lives with his ; former supervisor real estate office; DNR/I code status FamHx: positive for HTN ROS: as above, otherwise reviewed and all were negative Constitutional: NAD, normally developed, well-nourished elderly white male vitals: Vital Signs Temp 37.2 C 04/07/17 02:55 Pulse 59 04/07/17 06:01 Resp 19 04/07/17 06:01 BP 67/45 04/07/17 06:01 Pulse Ox 94 04/07/17 06:01 Intake & Output 04/06/17 04/06/17 04/07/17 11:59 23:59 11:59 Intake Total 1140 Output Total 0 Balance 1140 Weight 81.647 kg 81.4 kg Intake: IV Fluids 1140 NS (0.9%) 140 Oral 0 Output: Urine 0 HEENM: atraumatic; hearing: unable to accurately assess 2nd severity of dementia ; oropharynx: clear, mucosa tacky Neck: soft tissue: non-tender, no nuchal rigidity; thyroid: normal Pulmonary: clear to auscultation bilaterally, good aeration, no accessory muscle use CV: RR/RR, normal S1S2, no carotid bruit, no jugular venous distention, 2+ B DP/ PT, 1+ RLE/trace LLE edema Abdominal: soft, non-distended, non-tender, no rebound/guarding/rigidity, normoactive bowel sounds, no hepatosplenomegaly or masses, no costovertebral angle tenderness Musculoskeletal: general: grossly intact without obvious malformation or contracture Integumental: normal appearance and texture of exposed skin Psychiatric orientation: AA & disoriented affect: calm mood: cooperative eye contact: poor content: unreliable, incoherent memory: markedly impaired insight: poor to absent Testing: Lab Results 04/07/17 04/07/17 04/07/17 Range/Units 00:40 00:40 00:40 WBC 15.3 H (3.5-10.8) 10^3/ul RBC 4.08 (4.0-5.4) 10^6/ul Hgb 12.6 L (14.0-18.0) g/dl Hct 37 L (42-52) % MCV 92 (80-94) fL MCH 31 (27-31) pg MCHC 34 (31-36) g/dl RDW 14 (10.5-15) % Plt Count 199 (150-450) 10^3/ul MPV 8 (7.4-10.4) um3 Neut % (Auto) 85.7 H (38-83) % Lymph % (Auto) 7.7 L (25-47) % [place] % (Auto) 5.4 (1-9) % Eos % (Auto) 0.6 (0-6) % Baso % (Auto) 0.6 (0-2) % Absolute Neuts (auto) 13.1 H (1.5-7.7) 10^3/ul Absolute Lymphs (auto) 1.2 (1.0-4.8) 10^3/ul Absolute Monos (auto) 0.8 (0-0.8) 10^3/ul Absolute Eos (auto) 0.1 (0-0.6) 10^3/ul Absolute Basos (auto) 0.1 (0-0.2) 10^3/ul Absolute Nucleated RBC 0 10^3/ul Nucleated RBC % 0 INR (Anticoag Therapy) 1.27 H (0.77-1.02) APTT 35.4 (26.0-36.3) seconds Sodium 132 L (133-145) mmol/L Potassium 4.2 (3.5-5.0) mmol/L Chloride 102 (101-111) mmol/L Carbon Dioxide 24 (22-32) mmol/L Anion Gap 6 (2-11) mmol/L BUN 27 H (6-24) mg/dL Creatinine 1.16 (0.67-1.17) mg/dL Est GFR ( Amer) 77.1 (>60) Est GFR (Non-Af Amer) 60.0 (>60) BUN/Creatinine Ratio 23.3 H (8-20) Glucose 168 H (70-100) mg/dL Lactic Acid (0.5-2.0) mmol/L Calcium 9.0 (8.6-10.3) mg/dL Total Bilirubin 0.50 (0.2-1.0) mg/dL AST 39 (13-39) U/L ALT 15 (7-52) U/L Alkaline Phosphatase 71 (34-104) U/L Troponin I 2.88 H* (<0.04) ng/mL C-Reactive Protein 33.66 H (< 5.00) mg/L B-Natriuretic Peptide ( - 100) pg/mL Total Protein 6.8 (6.4-8.9) g/dL Albumin 3.3 (3.2-5.2) g/dL Globulin 3.5 (2-4) g/dL Albumin/Globulin Ratio 0.9 L (1-3) Urine Color Urine Appearance Urine pH (5-9) Ur Specific [place] (1.010-1.030) Urine Protein (Negative) Urine Ketones (Negative) Urine Blood (Negative) Urine Nitrate (Negative) Urine Bilirubin (Negative) Urine Urobilinogen (Negative) Ur Leukocyte Esterase (Negative) Urine WBC (Auto) (Absent) Urine RBC (Auto) (Absent) Urine Bacteria (Absent) Hyaline Casts (Absent) Urine Glucose (Negative) Influenza A (Rapid) (Negative) Influenza B (Rapid) (Negative) 04/07/17 04/07/17 04/07/17 Range/Units 00:40 00:40 00:48 WBC (3.5-10.8) 10^3/ul RBC (4.0-5.4) 10^6/ul Hgb (14.0-18.0) g/dl Hct (42-52) % MCV (80-94) fL MCH (27-31) pg MCHC (31-36) g/dl RDW (10.5-15) % Plt Count (150-450) 10^3/ul MPV (7.4-10.4) um3 Neut % (Auto) (38-83) % Lymph % (Auto) (25-47) % [place] % (Auto) (1-9) % Eos % (Auto) (0-6) % Baso % (Auto) (0-2) % Absolute Neuts (auto) (1.5-7.7) 10^3/ul Absolute Lymphs (auto) (1.0-4.8) 10^3/ul Absolute Monos (auto) (0-0.8) 10^3/ul Absolute Eos (auto) (0-0.6) 10^3/ul Absolute Basos (auto) (0-0.2) 10^3/ul Absolute Nucleated RBC 10^3/ul Nucleated RBC % INR (Anticoag Therapy) (0.77-1.02) APTT (26.0-36.3) seconds Sodium (133-145) mmol/L Potassium (3.5-5.0) mmol/L Chloride (101-111) mmol/L Carbon Dioxide (22-32) mmol/L Anion Gap (2-11) mmol/L BUN (6-24) mg/dL Creatinine (0.67-1.17) mg/dL Est GFR ( Amer) (>60) Est GFR (Non-Af Amer) (>60) BUN/Creatinine Ratio (8-20) Glucose (70-100) mg/dL Lactic Acid 1.8 (0.5-2.0) mmol/L Calcium (8.6-10.3) mg/dL Total Bilirubin (0.2-1.0) mg/dL AST (13-39) U/L ALT (7-52) U/L Alkaline Phosphatase (34-104) U/L Troponin I (<0.04) ng/mL C-Reactive Protein (< 5.00) mg/L B-Natriuretic Peptide 149 H ( - 100) pg/mL Total Protein (6.4-8.9) g/dL Albumin (3.2-5.2) g/dL Globulin (2-4) g/dL Albumin/Globulin Ratio (1-3) Urine Color Yellow Urine Appearance Clear Urine pH 6.0 (5-9) Ur Specific [place] 1.020 (1.010-1.030) Urine Protein Negative (Negative) Urine Ketones Negative (Negative) Urine Blood 2+ H (Negative) Urine Nitrate Negative (Negative) Urine Bilirubin Negative (Negative) Urine Urobilinogen Negative (Negative) Ur Leukocyte Esterase Negative (Negative) Urine WBC (Auto) Absent (Absent) Urine RBC (Auto) 3+(>10/hpf) H (Absent) Urine Bacteria Absent (Absent) Hyaline Casts Present H (Absent) Urine Glucose Negative (Negative) Influenza A (Rapid) (Negative) Influenza B (Rapid) (Negative) 04/07/17 04/07/17 04/07/17 Range/Units 01:22 05:25 05:25 WBC 12.2 H (3.5-10.8) 10^3/ul RBC 3.87 L (4.0-5.4) 10^6/ul Hgb 12.0 L (14.0-18.0) g/dl Hct 36 L (42-52) % MCV 92 (80-94) fL MCH 31 (27-31) pg MCHC 34 (31-36) g/dl RDW 14 (10.5-15) % Plt Count 171 (150-450) 10^3/ul MPV 7 L (7.4-10.4) um3 Neut % (Auto) (38-83) % Lymph % (Auto) (25-47) % [place] % (Auto) (1-9) % Eos % (Auto) (0-6) % Baso % (Auto) (0-2) % Absolute Neuts (auto) (1.5-7.7) 10^3/ul Absolute Lymphs (auto) (1.0-4.8) 10^3/ul Absolute Monos (auto) (0-0.8) 10^3/ul Absolute Eos (auto) (0-0.6) 10^3/ul Absolute Basos (auto) (0-0.2) 10^3/ul Absolute Nucleated RBC 10^3/ul Nucleated RBC % INR (Anticoag Therapy) (0.77-1.02) APTT (26.0-36.3) seconds Sodium 134 (133-145) mmol/L Potassium 4.5 (3.5-5.0) mmol/L Chloride 104 (101-111) mmol/L Carbon Dioxide 27 (22-32) mmol/L Anion Gap 3 (2-11) mmol/L BUN 26 H (6-24) mg/dL Creatinine 1.08 (0.67-1.17) mg/dL Est GFR ( Amer) 83.8 (>60) Est GFR (Non-Af Amer) 65.1 (>60) BUN/Creatinine Ratio 24.1 H (8-20) Glucose 126 H (70-100) mg/dL Lactic Acid (0.5-2.0) mmol/L Calcium 8.5 L (8.6-10.3) mg/dL Total Bilirubin (0.2-1.0) mg/dL AST (13-39) U/L ALT (7-52) U/L Alkaline Phosphatase (34-104) U/L Troponin I 29.65 H* (<0.04) ng/mL C-Reactive Protein (< 5.00) mg/L B-Natriuretic Peptide ( - 100) pg/mL Total Protein (6.4-8.9) g/dL Albumin (3.2-5.2) g/dL Globulin (2-4) g/dL Albumin/Globulin Ratio (1-3) Urine Color Urine Appearance Urine pH (5-9) Ur Specific [place] (1.010-1.030) Urine Protein (Negative) Urine Ketones (Negative) Urine Blood (Negative) Urine Nitrate (Negative) Urine Bilirubin (Negative) Urine Urobilinogen (Negative) Ur Leukocyte Esterase (Negative) Urine WBC (Auto) (Absent) Urine RBC (Auto) (Absent) Urine Bacteria (Absent) Hyaline Casts (Absent) Urine Glucose (Negative) Influenza A (Rapid) Negative (Negative) Influenza B (Rapid) Negative (Negative) ECG, personally reviewed: NSR rate 94 w/ mild ST depression V4-6 & I & Q-waves II/II/AVF CXR, personally reviewed: poor inspiration, no definitive infiltrate or acute process Impression: 86M presenting with new onset AFIB presumably ~1200 04/06/2016 likely continuing through the day until EMS arrived and prompting an NSTEMI Discussion: Given his poor cognitive function & dysphagia 2nd advanced dementia now with an NSTEMI likely provoked by new onset AFIB/RVR on top of underlying CAD Mr Knapp would be appropriate for palliative care, minimization of medications, & Hospice upon discharge, if family agrees. DIAGNOSIS & PLAN Primary NSTEMI provoked by new onset AFIB/RVR with likely underlying CAD given his age : 300mg ASA OR & 300mg clopidogrel PO given in ED : no heparin 2nd concurrent rivaroxaban : ICU monitoring : supplemental oxygen : family agrees with NO cardiac cath/other aggressive measures 2nd poor candidate : Romain Carrasquillo MD cardiology consulted, will evaluate and make recommendation in AM : supportive care DVT w/ suspected acute DVT : ICU monitoring : supplemental oxygen : not a good candidate for anti-coagulation due to rectal bleeding : Nita Hussein MD surgery consulted, will come evaluate for possible IVC filter placement as he is Secondary HX DVT : continue rivaroxaban TIA : continue aspirin HTN : review meds once reconciled hypothyroidism : review meds once reconciled GERD : PO omeprazole Admission Rational: inpatient ICU for NSTEMI, new onset AFIB RVR; inappropriate for outpatient setting DVTp: rivaroxaban Code Status: DNR/I HCP: /son
--- NOTE | 2017-04-07 07:24 | RAD ---
INDICATION: Cough. COMPARISON: Comparison is made with a prior chest x-ray study from September 21, 2016. TECHNIQUE: A portable view of the chest was obtained. FINDINGS: The heart is within normal limits in size. The lungs are underinflated. There are small infiltrates in the mid and lower lung loyd on both sides. IMPRESSION: SMALL BILATERAL INFILTRATES.
--- NOTE | 2017-04-07 08:04 | PN ---
Subjective Date of Service: 04/07/17 Interval History: Patient sleeping in ICU bed. He did not awake to light touch or voice. Objective Active Medications: Acetaminophen (Tylenol Tab*) 650 mg PO Q6H PRN PRN Reason: FEVER/PAIN Albuterol (Ventolin 2.5 Mg/3 Ml Neb.Anamaria*) 2.5 mg INH Q2H PRN PRN Reason: SOB/WHEEZING Aspirin (Aspirin Ec Low Dose*) 81 mg PO DAILY [facility] Docusate Sodium (Colace Cap*) 200 mg PO BID [facility] Potassium Chloride/Dextrose (D5w 1/2 Ns Kcl 20 Meq 1000 Ml*) 1,000 mls @ 75 mls /hr IV PER RATE [facility] Levothyroxine Sodium (Synthroid Tab*) 100 mcg PO 0600 [facility] Last Admin: 04/07/17 06:35 Dose: Not Given Omeprazole (Prilosec Cap*) 20 mg PO DAILY@0600 [facility] Last Admin: 04/07/17 06:35 Dose: Not Given Ondansetron HCl (Zofran Inj*) 4 mg IV Q6H PRN PRN Reason: NAUSEA Rivaroxaban (Xarelto(*)) 20 mg PO DAILY [facility] Vital Signs - 8 hr 04/07/17 04/07/17 04/07/17 02:00 02:08 02:19 Temperature 99.1 F Pulse Rate 83 115 74 Respiratory 17 28 18 Rate Blood Pressure 116/67 120/71 (mmHg) O2 Sat by Pulse 99 85 88 Oximetry 04/07/17 04/07/17 04/07/17 02:30 02:55 02:56 Temperature 98.9 F Pulse Rate 68 74 Respiratory 16 24 Rate Blood Pressure 104/40 97/51 (mmHg) O2 Sat by Pulse 100 99 Oximetry 04/07/17 04/07/17 04/07/17 03:00 03:05 03:14 Temperature Pulse Rate 80 Respiratory 24 24 18 Rate Blood Pressure 120/71 (mmHg) O2 Sat by Pulse 86 Oximetry 04/07/17 04/07/17 04/07/17 03:16 03:44 03:50 Temperature Pulse Rate 75 75 74 Respiratory 19 27 22 Rate Blood Pressure 142/69 121/86 119/57 (mmHg) O2 Sat by Pulse 89 91 91 Oximetry 04/07/17 04/07/17 04/07/17 04:00 04:01 04:16 Temperature Pulse Rate 75 81 75 Respiratory 15 22 24 Rate Blood Pressure 106/57 (mmHg) O2 Sat by Pulse 86 85 87 Oximetry 04/07/17 04/07/17 04/07/17 04:32 05:00 05:01 Temperature Pulse Rate 73 64 62 Respiratory 15 20 21 Rate Blood Pressure 64/47 143/69 (mmHg) O2 Sat by Pulse 93 99 99 Oximetry 04/07/17 04/07/17 04/07/17 05:31 05:46 06:00 Temperature Pulse Rate 64 68 58 Respiratory 20 15 17 Rate Blood Pressure 170/153 105/56 (mmHg) O2 Sat by Pulse 93 93 93 Oximetry 04/07/17 04/07/17 04/07/17 06:01 06:12 06:15 Temperature Pulse Rate 59 63 64 Respiratory 19 20 20 Rate Blood Pressure 67/45 94/62 103/65 (mmHg) O2 Sat by Pulse 94 92 94 Oximetry 04/07/17 04/07/17 04/07/17 06:32 06:46 07:00 Temperature Pulse Rate 59 58 57 Respiratory 14 18 19 Rate Blood Pressure 114/49 103/74 (mmHg) O2 Sat by Pulse 95 94 93 Oximetry 04/07/17 04/07/17 07:01 07:24 Temperature 98.0 F Pulse Rate 57 Respiratory 19 Rate Blood Pressure 98/45 (mmHg) O2 Sat by Pulse 92 Oximetry Oxygen Devices in Use Now: Nasal Cannula Appearance: Head sl up on ICU bed. Neck: NL Appearance and Movements; NL JVP, No Thyroid Enlargement, Masses Respiratory: Symmetrical Chest Expansion and Respiratory Effort, Clear to Auscultation, Clear to Percussion Cardiovascular: NL Sounds; No Murmurs; No JVD, RRR, No Edema, - Extremities: No Edema, No Clubbing, Cyanosis, - Skin: No Rash or Ulcers, No Nodules or Sclerosis, - Neurological: - - Sleeping. No tremor. Result Diagrams: 04/07/17 05:25 04/07/17 05:25 Microbiology and Other Data: Microbiology 04/07/17 03:26 Nasal Screen MRSA (PCR)(MICHAEL) - Final Nasal Mrsa Negative Assess/Plan/Problems-Billing Assessment: - Patient Problems (1) AMI (acute myocardial infarction) Current Visit: Yes Status: Acute Code(s): I21.9 - ACUTE MYOCARDIAL INFARCTION, UNSPECIFIED SNOMED Code(s): 36836036 Comment: I spoke with randy Vera 10 AM. He agrees to comfort measure, no cardiac testing or monitoring. (2) Dementia Current Visit: No Status: Acute Code(s): F03.90 - UNSPECIFIED DEMENTIA WITHOUT BEHAVIORAL DISTURBANCE SNOMED Code(s): 03618672 Comment: I met with randy Vera about 10 AM 04/07 to discuss end of life care. He agreed on comfort measures. I will continue IV fluids and re-evaluate his ability to swallow 04/08. (3) Hypothyroid Current Visit: Yes Status: Acute Code(s): E03.9 - HYPOTHYROIDISM, UNSPECIFIED SNOMED Code(s): 86631146 Comment: Add on TSH wnl 04/07/17.
[2017-04-07] MEDS: D5W 1/2 NS KCl 20 Meq 1000 ML* 1,000 ML IV SCH ×3 (08:49→23:31)
[2017-04-07] MEDS: Rivaroxaban TAB(*) 20 MG TAB PO SCH (13:46)
[2017-04-07] MEDS: Docusate CAP* 100 MG PO SCH ×2 (13:46→20:47)
[2017-04-08] MEDS: Levothyroxine TAB* 100 MCG TAB PO SCH (04:45)
[2017-04-08] MEDS: Omeprazole CAP* 20 MG PO SCH (04:45)
[2017-04-08] MEDS: Aspirin EC Low Dose* 81 MG TAB.EC PO SCH (07:32)
[2017-04-08] MEDS: Rivaroxaban TAB(*) 20 MG TAB PO SCH (07:33)
[2017-04-08] MEDS: Docusate CAP* 100 MG PO SCH (07:33)
--- NOTE | 2017-04-08 11:48 | PN ---
Subjective Date of Service: 04/08/17 Interval History: Patient likely not able to make his needs known. Objective Active Medications: Acetaminophen (Tylenol Tab*) 650 mg PO Q6H PRN PRN Reason: FEVER/PAIN Albuterol (Ventolin 2.5 Mg/3 Ml Neb.Anamaria*) 2.5 mg INH Q2H PRN PRN Reason: SOB/WHEEZING Aspirin (Aspirin Ec Low Dose*) 81 mg PO DAILY [facility] Last Admin: 04/08/17 07:32 Dose: Not Given Potassium Chloride/Dextrose (D5w 1/2 Ns Kcl 20 Meq 1000 Ml*) 1,000 mls @ 75 mls /hr IV PER RATE [facility] Last Admin: 04/07/17 23:31 Dose: 75 mls/hr Levothyroxine Sodium (Synthroid Tab*) 100 mcg PO 0600 [facility] Last Admin: 04/08/17 04:45 Dose: Not Given Omeprazole (Prilosec Cap*) 20 mg PO DAILY@0600 [facility] Last Admin: 04/08/17 04:45 Dose: Not Given Rivaroxaban (Xarelto(*)) 20 mg PO DAILY [facility] Last Admin: 04/08/17 07:33 Dose: Not Given Vital Signs - 8 hr 04/08/17 04/08/17 04/08/17 07:20 08:08 08:09 Pulse Rate 72 Respiratory 18 20 Rate O2 Sat by Pulse 97 97 Oximetry Oxygen Devices in Use Now: Nasal Cannula Appearance: Alert, partly up in bed. Looks comfortable although slightly restless, moving his arms. Mittens on both hands. Eyes: No Scleral Icterus Respiratory: Symmetrical Chest Expansion and Respiratory Effort, Clear to Auscultation, Clear to Percussion Cardiovascular: NL Sounds; No Murmurs; No JVD, RRR, No Edema, - Extremities: No Edema, No Clubbing, Cyanosis, - Skin: No Rash or Ulcers, No Nodules or Sclerosis, - Neurological: - - sparse speech. No tremor. Result Diagrams: 04/07/17 05:25 04/07/17 05:25 Microbiology and Other Data: Microbiology 04/07/17 03:26 Nasal Screen MRSA (PCR)(MICHAEL) - Final Nasal Mrsa Negative Assess/Plan/Problems-Billing Assessment: - Patient Problems (1) AMI (acute myocardial infarction) Current Visit: Yes Status: Acute Code(s): I21.9 - ACUTE MYOCARDIAL INFARCTION, UNSPECIFIED SNOMED Code(s): 63718340 Comment: I spoke with randy Vera 10 AM. He agrees to comfort measure, no cardiac testing or monitoring. (2) Dementia Current Visit: No Status: Acute Code(s): F03.90 - UNSPECIFIED DEMENTIA WITHOUT BEHAVIORAL DISTURBANCE SNOMED Code(s): 85341356 Comment: I met with randy Vera about 11:30 AM 04/08 to discuss end of life care. Pt failed nursing swallow eval. ST swallow eval for Sunday 04/09. Hospice referral. Son interested in ME facility in [place]. (3) Hypothyroid Current Visit: Yes Status: Acute Code(s): E03.9 - HYPOTHYROIDISM, UNSPECIFIED SNOMED Code(s): 05945352 Comment: Add on TSH wnl 04/07/17.
[2017-04-08] MEDS: D5W 1/2 NS KCl 20 Meq 1000 ML* 1,000 ML IV SCH (14:16)
[2017-04-09] MEDS: Levothyroxine TAB* 100 MCG TAB PO SCH (04:37)
[2017-04-09] MEDS: Omeprazole CAP* 20 MG PO SCH (04:37)
[2017-04-09] MEDS: D5W 1/2 NS KCl 20 Meq 1000 ML* 1,000 ML IV SCH ×2 (06:08→23:17)
[2017-04-09] MEDS: Aspirin EC Low Dose* 81 MG TAB.EC PO SCH (10:47)
[2017-04-09] MEDS: Rivaroxaban TAB(*) 20 MG TAB PO SCH (10:48)
--- NOTE | 2017-04-09 14:41 | PN ---
Subjective Date of Service: 04/09/17 Interval History: No c/o. Objective Active Medications: Acetaminophen (Tylenol Tab*) 650 mg PO Q6H PRN PRN Reason: FEVER/PAIN Albuterol (Ventolin 2.5 Mg/3 Ml Neb.Anamaria*) 2.5 mg INH Q2H PRN PRN Reason: SOB/WHEEZING Aspirin (Aspirin Ec Low Dose*) 81 mg PO DAILY [facility] Last Admin: 04/09/17 10:47 Dose: Not Given Potassium Chloride/Dextrose (D5w 1/2 Ns Kcl 20 Meq 1000 Ml*) 1,000 mls @ 75 mls /hr IV PER RATE [facility] Last Admin: 04/09/17 06:08 Dose: 75 mls/hr Levothyroxine Sodium (Synthroid Tab*) 100 mcg PO 0600 [facility] Last Admin: 04/09/17 04:37 Dose: Not Given Omeprazole (Prilosec Cap*) 20 mg PO DAILY@0600 [facility] Last Admin: 04/09/17 04:37 Dose: Not Given Rivaroxaban (Xarelto(*)) 20 mg PO DAILY [facility] Last Admin: 04/09/17 10:48 Dose: Not Given Vital Signs - 8 hr 04/09/17 07:40 Temperature 98.0 F Pulse Rate 71 Respiratory 18 Rate Blood Pressure 127/84 (mmHg) O2 Sat by Pulse 97 Oximetry Oxygen Devices in Use Now: Nasal Cannula Appearance: Alert, askew on bed, head sl up. Neutral affect. Looks comfortable. Extremities: No Edema, No Clubbing, Cyanosis, - Skin: No Rash or Ulcers, No Nodules or Sclerosis, - Neurological: NL Sensation - Pt stated his son was in assisted but couldn't explain why. No tremor. Disoriented. Result Diagrams: 04/07/17 05:25 04/07/17 05:25 Microbiology and Other Data: Microbiology 04/07/17 03:26 Nasal Screen MRSA (PCR)(MICHAEL) - Final Nasal Mrsa Negative Assess/Plan/Problems-Billing Assessment: - Patient Problems (1) AMI (acute myocardial infarction) Current Visit: Yes Status: Acute Code(s): I21.9 - ACUTE MYOCARDIAL INFARCTION, UNSPECIFIED SNOMED Code(s): 44621362 Comment: I spoke with son Chuy 10 AM. He agrees to comfort measure, no cardiac testing or monitoring. (2) Dementia Current Visit: No Status: Acute Code(s): F03.90 - UNSPECIFIED DEMENTIA WITHOUT BEHAVIORAL DISTURBANCE SNOMED Code(s): 07009762 Comment: I met with son Chuy about 11:30 AM 04/08 to discuss end of life care. Pt failed nursing swallow eval. ST swallow eval for Sunday 04/09. Hospice referral. Son interested in MA facility in [place]. I will talk to him about stopping IV fluids when he is available. (3) Hypothyroid Current Visit: Yes Status: Acute Code(s): E03.9 - HYPOTHYROIDISM, UNSPECIFIED SNOMED Code(s): 76359491 Comment: TSH wnl 04/07/17.
[2017-04-10] MEDS: Omeprazole CAP* 20 MG PO SCH (04:23)
[2017-04-10] MEDS: Levothyroxine TAB* 100 MCG TAB PO SCH (04:23)
[2017-04-10] MEDS: Rivaroxaban TAB(*) 20 MG TAB PO SCH ×2 (07:30→09:32)
[2017-04-10] MEDS: Aspirin EC Low Dose* 81 MG TAB.EC PO SCH ×2 (07:30→09:32)
--- NOTE | 2017-04-10 11:14 | PN ---
Subjective Date of Service: 04/10/17 Interval History: No c/o. Objective Active Medications: Acetaminophen (Tylenol Tab*) 650 mg PO Q6H PRN PRN Reason: FEVER/PAIN Albuterol (Ventolin 2.5 Mg/3 Ml Neb.Anamaria*) 2.5 mg INH Q2H PRN PRN Reason: SOB/WHEEZING Aspirin (Aspirin Ec Low Dose*) 81 mg PO DAILY [facility] Last Admin: 04/10/17 09:32 Dose: 81 mg Potassium Chloride/Dextrose (D5w 1/2 Ns Kcl 20 Meq 1000 Ml*) 1,000 mls @ 75 mls /hr IV PER RATE [facility] Last Admin: 04/09/17 23:17 Dose: 75 mls/hr Levothyroxine Sodium (Synthroid Tab*) 100 mcg PO 0600 [facility] Last Admin: 04/10/17 04:23 Dose: Not Given Omeprazole (Prilosec Cap*) 20 mg PO DAILY@0600 [facility] Last Admin: 04/10/17 04:23 Dose: Not Given Rivaroxaban (Xarelto(*)) 20 mg PO DAILY [facility] Last Admin: 04/10/17 09:32 Dose: 20 mg Vital Signs - 8 hr 04/10/17 04/10/17 07:59 08:02 Pulse Rate 66 Respiratory 16 18 Rate Blood Pressure 103/58 (mmHg) O2 Sat by Pulse 95 Oximetry Oxygen Devices in Use Now: None Appearance: Alert, head partly up in bed. Eyes: No Scleral Icterus Neck: NL Appearance and Movements; NL JVP, No Thyroid Enlargement, Masses Respiratory: Symmetrical Chest Expansion and Respiratory Effort, Clear to Auscultation, Clear to Percussion Extremities: No Edema, No Clubbing, Cyanosis, - Skin: No Rash or Ulcers, No Nodules or Sclerosis, - Neurological: NL Sensation - Diosriented. Cooperative. No tremor. Result Diagrams: 04/07/17 05:25 04/07/17 05:25 Microbiology and Other Data: Microbiology 04/07/17 03:26 Nasal Screen MRSA (PCR)(MICHAEL) - Final Nasal Mrsa Negative Assess/Plan/Problems-Billing Assessment: - Patient Problems (1) AMI (acute myocardial infarction) Current Visit: Yes Status: Acute Code(s): I21.9 - ACUTE MYOCARDIAL INFARCTION, UNSPECIFIED SNOMED Code(s): 00579983 Comment: I spoke with son Chuy 10 AM 04/10. He agrees to comfort measure, no cardiac testing or monitoring. (2) Dementia Current Visit: No Status: Acute Code(s): F03.90 - UNSPECIFIED DEMENTIA WITHOUT BEHAVIORAL DISTURBANCE SNOMED Code(s): 31959798 Comment: I met with randy Vera about 11:30 AM 04/08 to discuss end of life care. Pt failed nursing swallow eval. Patient ate a bowl of oatmeal and a 8 oz carton of milk 04/10. ST swallow eval for 04/10. Hospice referral. Awaiting bed offer. IV fluids d/c'd. (3) Hypothyroid Current Visit: Yes Status: Acute Code(s): E03.9 - HYPOTHYROIDISM, UNSPECIFIED SNOMED Code(s): 79177816 Comment: TSH wnl 04/07/17.
[2017-04-10] MEDS: D5W 1/2 NS KCl 20 Meq 1000 ML* 1,000 ML IV SCH (12:46)
--- NOTE | 2017-04-10 14:20 | CONSULT ---
Palliative / Hospice Consult Ordering Provider: Adam Almaguer - Subjective Code Status: DNR Advance Directives Location: In Chart MOLST Part A Completed: Yes MOLST Part E Completed:: No - History or Present Illness History or Present Illness: This 86 year old man with advanced dementia and dysphagia was hospitalized 3 days ago for chest pain, and was found to have an ME and new onset AF. 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 Nevertheless, they requested that he remain on replacement fluids at 75 cc/hr. He was initially doing poorly and taking nothing p.o., but this morning ate a bowl of oatmeal. He is not drinking much, and when I offered a sip of water he coughed and choked. Per Dr. Almaguer, who cared for this patient last summer, the patient did make a comeback after seeming to deteriorate markedly. Lab Values: Laboratory Last Values WBC 12.2 10^3/ul (3.5-10.8) H 04/07/17 05:25 RBC 3.87 10^6/ul (4.0-5.4) L 04/07/17 05:25 Hgb 12.0 g/dl (14.0-18.0) L 04/07/17 05:25 Hct 36 % (42-52) L 04/07/17 05:25 MCV 92 fL (80-94) 04/07/17 05:25 MCH 31 pg (27-31) 04/07/17 05:25 MCHC 34 g/dl (31-36) 04/07/17 05:25 RDW 14 % (10.5-15) 04/07/17 05:25 Plt Count 171 10^3/ul (150-450) 04/07/17 05:25 MPV 7 um3 (7.4-10.4) L 04/07/17 05:25 Neut % (Auto) 85.7 % (38-83) H 04/07/17 00:40 Lymph % (Auto) 7.7 % (25-47) L 04/07/17 00:40 [place] % (Auto) 5.4 % (1-9) 04/07/17 00:40 Eos % (Auto) 0.6 % (0-6) 04/07/17 00:40 Baso % (Auto) 0.6 % (0-2) 04/07/17 00:40 Absolute Neuts (auto) 13.1 10^3/ul (1.5-7.7) H 04/07/17 00:40 Absolute Lymphs (auto) 1.2 10^3/ul (1.0-4.8) 04/07/17 00:40 Absolute Monos (auto) 0.8 10^3/ul (0-0.8) 04/07/17 00:40 Absolute Eos (auto) 0.1 10^3/ul (0-0.6) 04/07/17 00:40 Absolute Basos (auto) 0.1 10^3/ul (0-0.2) 04/07/17 00:40 Absolute Nucleated RBC 0 10^3/ul 04/07/17 00:40 Nucleated RBC % 0 04/07/17 00:40 INR (Anticoag Therapy) 1.27 (0.77-1.02) H 04/07/17 00:40 APTT 35.4 seconds (26.0-36.3) 04/07/17 00:40 Sodium 134 mmol/L (133-145) 04/07/17 05:25 Potassium 4.5 mmol/L (3.5-5.0) 04/07/17 05:25 Chloride 104 mmol/L (101-111) 04/07/17 05:25 Carbon Dioxide 27 mmol/L (22-32) 04/07/17 05:25 Anion Gap 3 mmol/L (2-11) 04/07/17 05:25 BUN 26 mg/dL (6-24) H 04/07/17 05:25 Creatinine 1.08 mg/dL (0.67-1.17) 04/07/17 05:25 Est GFR ( Amer) 83.8 (>60) 04/07/17 05:25 Est GFR (Non-Af Amer) 65.1 (>60) 04/07/17 05:25 BUN/Creatinine Ratio 24.1 (8-20) H 01/06/18 05:25 Glucose 126 mg/dL (70-100) H 04/07/17 05:25 Lactic Acid 1.8 mmol/L (0.5-2.0) 04/07/17 00:40 Calcium 8.5 mg/dL (8.6-10.3) L 04/07/17 05:25 Magnesium 2.0 mg/dL (1.9-2.7) 04/07/17 05:25 Total Bilirubin 0.50 mg/dL (0.2-1.0) 04/07/17 00:40 AST 39 U/L (13-39) 04/07/17 00:40 ALT 15 U/L (7-52) 04/07/17 00:40 Alkaline Phosphatase 71 U/L (34-104) 04/07/17 00:40 Troponin I 29.65 ng/mL (<0.04) H* 04/07/17 05:25 C-Reactive Protein 33.66 mg/L (< 5.00) H 04/07/17 00:40 B-Natriuretic Peptide 149 pg/mL (-100) H 04/07/17 00:40 Total Protein 6.8 g/dL (6.4-8.9) 04/07/17 00:40 Albumin 3.3 g/dL (3.2-5.2) 04/07/17 00:40 Globulin 3.5 g/dL (2-4) 04/07/17 00:40 Albumin/Globulin Ratio 0.9 (1-3) L 04/07/17 00:40 TSH 5.13 mcIU/mL (0.34-5.60) 04/07/17 05:25 Urine Color Yellow 04/07/17 00:48 Urine Appearance Clear 04/07/17 00:48 Urine pH 6.0 (5-9) 04/07/17 00:48 Ur Specific [place] 1.020 (1.010-1.030) 04/07/17 00:48 Urine Protein Negative (Negative) 04/07/17 00:48 Urine Ketones Negative (Negative) 04/07/17 00:48 Urine Blood 2+ (Negative) H 04/07/17 00:48 Urine Nitrate Negative (Negative) 04/07/17 00:48 Urine Bilirubin Negative (Negative) 04/07/17 00:48 Urine Urobilinogen Negative (Negative) 04/07/17 00:48 Ur Leukocyte Esterase Negative (Negative) 04/07/17 00:48 Urine WBC (Auto) Absent (Absent) 04/07/17 00:48 Urine RBC (Auto) 3+(>10/hpf) (Absent) H 04/07/17 00:48 Urine Bacteria Absent (Absent) 04/07/17 00:48 Hyaline Casts Present (Absent) H 04/07/17 00:48 Urine Glucose Negative (Negative) 04/07/17 00:48 Influenza A (Rapid) Negative (Negative) 04/07/17 01:22 Influenza B (Rapid) Negative (Negative) 04/07/17 01:22 - Objective Active Medications: Acetaminophen (Tylenol Tab*) 650 mg PO Q6H PRN PRN Reason: FEVER/PAIN Albuterol (Ventolin 2.5 Mg/3 Ml Neb.Anamaria*) 2.5 mg INH Q2H PRN PRN Reason: SOB/WHEEZING Aspirin (Aspirin Ec Low Dose*) 81 mg PO DAILY [facility] Last Admin: 04/10/17 09:32 Dose: 81 mg Potassium Chloride/Dextrose (D5w 1/2 Ns Kcl 20 Meq 1000 Ml*) 1,000 mls @ 75 mls /hr IV PER RATE [facility] Last Admin: 04/10/17 12:46 Dose: 75 mls/hr Levothyroxine Sodium (Synthroid Tab*) 100 mcg PO 0600 [facility] Last Admin: 04/10/17 04:23 Dose: Not Given Omeprazole (Prilosec Cap*) 20 mg PO DAILY@0600 [facility] Last Admin: 04/10/17 04:23 Dose: Not Given Rivaroxaban (Xarelto(*)) 20 mg PO DAILY [facility] Last Admin: 04/10/17 09:32 Dose: 20 mg Vital Signs: Vital Signs: Temp Pulse Resp BP Pulse Ox 98.6 F 66 18 103/58 95 04/10/17 00:15 04/10/17 08:02 04/10/17 08:02 04/10/17 08:02 04/10/17 08:02 Patient Weight: Weight 169 lb 3.2 oz Intake and Output: Intake & Output 04/08/17 04/09/17 04/10/17 04/11/17 06:59 06:59 06:59 06:59 Intake Total 510 4190 150 2230 Balance 510 4190 150 2230 Weight 174 lb 3.2 oz 170 lb 169 lb 3.2 oz Intake: IV Fluids 510 4190 2030 D5W 1/2 NS 20 meq KCL 2580 2030 LR W/20MEQ KCL 378 1610 NS (0.9%) 132 Oral 150 200 Other: Estimated Void Large Large Large # Bowel Movements 1 1 2 Estimated Stool Amount Large Small Medium # Voids 1 1 3 ADLs: Meal Record Start: 04/07/17 22: 03 Freq: Status: Active Protocol: Created 04/07/17 22:03 [id number] (Rec: 04/07/17 22:03 [id number] MED-C11) Document 04/09/17 19:00 [id number] (Rec: 04/09/17 20:06 [id number] MED-C09) Document 04/10/17 08:00 [id number] (Rec: 04/10/17 10:22 [id number] MED-C09) Intake and Output Start: 04/07/17 02: 19 Freq: ,,22 Status: Complete Protocol: Document 04/07/17 06:00 [id number] (Rec: 04/07/17 06:14 [id number]) General Impression: Pleasantly confused gentleman, unable to complete a sentence as his attention drifts, oriented to self only. Eyes: No Scleral Icterus Ears/Nose/Mouth/Throat: Clear Oropharnyx Neck: NL Appearance and Movements; NL JVP, No Thyroid Enlargement, Masses Cardiovascular: NL Sounds; No Murmurs; No JVD, RRR, No Edema Respiratory: Symmetrical Chest Expansion and Respiratory Effort Abdominal: NL Sounds; No Tenderness; No Distention Extremities: No Edema, No Clubbing, Cyanosis, - Neurological: NL Sensation - Disoriented, confused, paucity of speech, no tremor , chokes on sip of water. - Assessment Assessment: 86 year old man with advanced dementia, and probably dysphagia, who is admitted with an ME with troponins peaking at 30, and new onset AF, as well as other comorbid conditions. He seems at this time to be improving and may regain some of his function, but after speaking with his son Chuy ([phone]) it is clear that at baseline he has been quite debilitated, needing assistance with almost all ADLs, able to ambulate onl short distances, frequently coughing and choking with meals, and incontinent of bowel and bladder. Chuy is hoping his father will "bounce back" as he did last summer, and he would like him to get ST rehab in a local SNF. If that is feasible, I told Chuy that at the conclusion of rehab if his father is still debilitated, he would be appropriate for hospice services because of his aspiration, with likely pneumonia and prognosis of less than 6 months. It would be good to have a formal swallow evaluation during this admission to confirm the extent of his dysphagia. At this time, Chuy is not willing to forego future hospitalizations and interventions, so is not in a "hospice mindset" as far as his father's status is concerned. He feels his father is probably too much of a burden for his mother to handle at home, and if he is not deemed eligible for STR, he would be appropriate for hospice services at the SNF he transfers to. Chuy is willing to consider [facility] in [place], as well as [facility], [facility], or [facility] locally. Thanks for asking me to see this very nice man. Part E of his MOLST form needs to be completed with the patient's or son. - Plan Consult Plan (MU): Palliative - Time On Unit Date of Evaluation: 04/10/17 Hospice Consult Time in: 14:00 Hospice Consult Time Out: 15:00 Hospice Consult Time Total: 60 > 50% of Time Spend In Counseling or Coordinating Care: Yes
[2017-04-11] MEDS: Omeprazole CAP* 20 MG PO SCH (05:47)
[2017-04-11] MEDS: Levothyroxine TAB* 100 MCG TAB PO SCH (05:47)
[2017-04-11] MEDS: Rivaroxaban TAB(*) 20 MG TAB PO SCH (09:58)
[2017-04-11] MEDS: Aspirin EC Low Dose* 81 MG TAB.EC PO SCH (10:00)
--- NOTE | 2017-04-11 10:16 | PN ---
Subjective Date of Service: 04/11/17 Interval History: No c/o. Objective Active Medications: Acetaminophen (Tylenol Tab*) 650 mg PO Q6H PRN PRN Reason: FEVER/PAIN Albuterol (Ventolin 2.5 Mg/3 Ml Neb.Anamaria*) 2.5 mg INH Q2H PRN PRN Reason: SOB/WHEEZING Aspirin (Aspirin Ec Low Dose*) 81 mg PO DAILY [facility] Last Admin: 04/11/17 10:00 Dose: 81 mg Levothyroxine Sodium (Synthroid Tab*) 100 mcg PO 0600 [facility] Last Admin: 04/11/17 05:47 Dose: 100 mcg Omeprazole (Prilosec Cap*) 20 mg PO DAILY@0600 [facility] Last Admin: 04/11/17 05:47 Dose: 20 mg Rivaroxaban (Xarelto(*)) 20 mg PO DAILY [facility] Last Admin: 04/11/17 09:58 Dose: 20 mg Vital Signs - 8 hr 04/11/17 04/11/17 07:47 08:00 Temperature 98.0 F Pulse Rate 68 Respiratory 16 16 Rate Blood Pressure 114/45 (mmHg) O2 Sat by Pulse 97 Oximetry Oxygen Devices in Use Now: None Appearance: Alert, supine in bed. Neutral affect. Looks comfortable. Extremities: No Edema, No Clubbing, Cyanosis, - Skin: No Rash or Ulcers, No Nodules or Sclerosis, - Neurological: NL Sensation - Disoriented. Cooperative. Poor memory. No tremor. Result Diagrams: 04/07/17 05:25 04/07/17 05:25 Microbiology and Other Data: Microbiology 04/07/17 03:26 Nasal Screen MRSA (PCR)(MICHAEL) - Final Nasal Mrsa Negative Assess/Plan/Problems-Billing Assessment: - Patient Problems (1) AMI (acute myocardial infarction) Current Visit: Yes Status: Acute Code(s): I21.9 - ACUTE MYOCARDIAL INFARCTION, UNSPECIFIED SNOMED Code(s): 35716714 Comment: I spoke with randy Vera 10 AM 04/10. He agrees to comfort measure, no cardiac testing or monitoring. (2) Dementia Current Visit: No Status: Acute Code(s): F03.90 - UNSPECIFIED DEMENTIA WITHOUT BEHAVIORAL DISTURBANCE SNOMED Code(s): 69532855 Comment: I met with randy Vera about 11:30 AM 04/08 to discuss end of life care. Pt failed nursing swallow eval. Patient ate a bowl of oatmeal and a 8 oz carton of milk 04/10. ST swallow eval for 04/10. Hospice referral. Awaiting bed offer. IV fluids d/c'd. (3) Hypothyroid Current Visit: Yes Status: Acute Code(s): E03.9 - HYPOTHYROIDISM, UNSPECIFIED SNOMED Code(s): 75484061 Comment: TSH wnl 04/07/17.
[2017-04-11] MEDS ORDERED: Polyethylene Glycol 3350* 17 GM PACKET PO PRN (16:19)
[2017-04-11] MEDS ORDERED: Magnesium Hydroxide LIQ* 30 ML UDC PO PRN (16:20)
--- NOTE | 2017-04-11 16:33 | PN ---
Progress Note - Progress Note Date of Service: 04/11/17 Note: Time spent on discharge 40 minutes.
[2017-04-11] MEDS: Magnesium Hydroxide LIQ* 30 ML UDC PO SCH (17:05)
[2017-04-12] MEDS: Levothyroxine TAB* 100 MCG TAB PO SCH (05:13)
--- NOTE | 2017-04-12 08:15 | TRS ---
CC: [facility] * TRANSFER SUMMARY: DATE OF ADMISSION: 04/07/17 DATE OF TRANSFER: 04/12/17 This is being dictated in advance. HISTORY OF PRESENT ILLNESS: This 86-year-old man presented with agitation and chest pain. He has advanced dementia and is not able to give a reliable history. In the emergency room, he had some ST depression in the anterior leads and Q-waves in the inferior leads. Troponin was 2.8. He was given 300 mg of clopidogrel, but had a difficult time swallowing it. He was given 300 mg of aspirin rectally. The patient did fairly well in the hospital. He remained hemodynamically stable without signs of failure. His troponin ld to 29.65 and it was not repeated after that. He did not complain of chest pain anymore. His main clinical problem seems to be his dementia and poor oral intake. The patient was seen by speech pathology. He was felt to tolerate the least restrictive diet with consistencies. The patient's oral intake was really inadequate to maintain himself. The patient had a palliative care consultation. The son understands that this is his father's final phase. Longevity is difficult to determine. It will depend mainly on his oral intake. The patient is transferred to [facility]. TRANSFER MEDICATIONS: 1. Acetaminophen 650 mg every 6 hours p.r.n. 2. Albuterol 2.5 mg by nebulizer every 2 hours p.r.n. 3. Aspirin 81 mg daily. 4. Magnesium hydroxide 60 mg daily. 5. Levothyroxine 100 mcg daily. 6. Senna 2 tablets b.i.d. 7. Rivaroxaban 20 mg daily. [id number]/[facility] #: [id number] [facility]
[2017-04-12] MEDS: Magnesium Hydroxide LIQ* 30 ML UDC PO SCH (08:39)
[2017-04-12] MEDS: Aspirin EC Low Dose* 81 MG TAB.EC PO SCH (08:40)
[2017-04-12] MEDS: Rivaroxaban TAB(*) 20 MG TAB PO SCH (08:40)
[2017-04-12 09:17] VITALS: BP 115/60
== END 2017-04-12 11:45 | DRG 282 ==
LOC: ED 23:42 → ICU 04-07 01:44 → MED 04-07 14:53
PROVIDERS: ADMIT Hospitalist; ATTEND Internal Medicine
DX: I21.4 Non-ST elevation (NSTEMI) myocardial infarction (principal); I50.810 Right heart failure, unspecified; I48.91 Unspecified atrial fibrillation; G30.9 Alzheimer's disease, unspecified; F02.80 Dementia in other diseases classified elsewhere, unspecified severity, without behavioral disturbance, psychotic disturbance, mood disturbance, and anxiety; I10 Essential (primary) hypertension; E03.9 Hypothyroidism, unspecified; K21.9 Gastro-esophageal reflux disease without esophagitis; Z66 Do not resuscitate; I25.10 Atherosclerotic heart disease of native coronary artery without angina pectoris; K44.9 Diaphragmatic hernia without obstruction or gangrene; Z79.82 Long term (current) use of aspirin; Z86.718 Personal history of other venous thrombosis and embolism; Z86.73 Personal history of transient ischemic attack (TIA), and cerebral infarction without residual deficits; Z87.891 Personal history of nicotine dependence; Z72.89 Other problems related to lifestyle; Z82.49 Family history of ischemic heart disease and other diseases of the circulatory system; Z79.01 Long term (current) use of anticoagulants
CPT/HCPCS: 36415; 71045; 80048; 80053; 81003; 81015; 83605; 83735; 83880; 84443; 84484; 85025; 85027; 85610; 85730; 86140; 87040; 87502; 87641; 93005; 94760; 96374; 99285; A9270-GY; J3490